=== PATIENT | female | born 1965 | race Two or more races ===

== ENCOUNTER 2020-12-08 11:03 | Emergency (ER) | payer MEDICAID, OTHER ==
[~2020-12-08] VITALS: Ht 162.6 cm; Wt 81.6 kg
[2020-12-08 13:16] VITALS: BP 132/85
== END 2020-12-08 13:26 | disposition home or self-care (01) ==
LOC: ER 11:03
DX: A08.4 Viral intestinal infection, unspecified (principal); R51.9 Headache, unspecified; Z20.822 Contact with and (suspected) exposure to COVID-19
CPT/HCPCS: 36415; 87426

== ENCOUNTER 2024-08-03 14:52 | Emergency (ER) | payer MEDICAID ==
[~2024-08-03] VITALS: Ht 160 cm; Wt 84.0 kg
[2024-08-03 15:53] LABS: Urine Bacteria None Seen /hpf (None Seen)
--- NOTE | 2024-08-03 16:03 | ED.PDOC ---
GI ASSESSMENT HPI Comments 59y F who presents to the ED for chief complaint of abdominal pain. Pt has the following ED course: - pt states she has been having diffuse abdominal pain for the past 3 days. -pt states the pain is bloating and pressure like in nature, non-radiating, rating the pain 8/10, constant, with no noted exacerbating or relieving factors - pt has been taking naproxen 650 mg daily for the pain but it has not been helping - pt has associated urinary frequency but otherwise denies nausea, vomiting or any associated symptoms - pt states she did have bowel movement earlier today - pt otherwise denies any other symptoms past medical history: HTN past surgical history: denies medications: denies allergies: denies social history: endorses tobacco use, endorses Etoh use, denies drug use HARMEET: ANDREA: Poor Historian. REVIEW OF SYSTEMS: CONSTITUTIONAL: Denies acute: fever, diaphoresis, chills, generalized weakness. HEAD: Denies acute: headache, photophobia Eyes: Denies acute: Double vision, vision loss, eye pain, eye discharge. EARS: Denies acute: tinnitus, hearing loss, ear discharge, ear pain, THROAT: Denies acute: sore throat, swelling, difficulty swallowing , pain with swallowing, change in voice. NECK: Denies acute: neck pain, neck swelling, stiff neck. HEART: Denies acute : chest pain, palpitations, LUNGS: Denies acute: SOB, wheezing, cough, hemoptysis ABDOMEN: Denies acute: Nausea, Vomiting, diarrhea, melena , hematemesis, hematochezia SKIN: Denies acute: rash, redness, lesions, itchiness. EXTREMITIES: Denies acute: calf pain, numbness, tingling, weakness, denies pain in extremity. Denies acute: Low back pain. Neuro: Denies acute: focal neurological deficit, motor or sensory focal neurological deficit, tremors, seizure like activity, confusion, dizziness, change in mental status, loss of bowel or bladder function, cauda equina like symptoms. : Denies acute: dysuria, hematuria, flank pain, increase in urinary frequency. PSYCH: Denies acute: hallucination, suicidal ideation, homicidal ideation. FEMALE: Denies acute: abnormal vaginal bleeding, foul odor, unusual discharge. PHYSICAL EXAM: General: no acute distress, awake and alert. Head: normocephalic, atraumatic. Neck: supple, trachea is midline, no swelling. Throat: Normal phonation. Eyes:, no erythema, no purulent discharge, no proptosis, no icterus. Heart: regular rate, regular rhythm, no significant murmur appreciated. Lungs: no apparent respiratory distress, Able to speak in full sentences. No wheezing, no rhonchi, no crackles. No stridors Clear to auscultation bilaterally. Abdomen: Minimal nonspecific generalized tender to palpation, non distended, soft, no guarding, no rebound, + bowel sounds. Neuro: Awake, Alert, oriented to name, self, situation, follows commands GCS=15. Speech is normal. Skin: no petechia, no purpura, no cyanosis, non-pale, not jaundice. Lower extremities: --no - Pitting edema no deformity, no focal swelling, no calf TTP. Makes eye contact. moves all four extremities. Face: no apparent facial droop. Ambulating in the ED independently. ED COURSE: Chief Complaint: Abdominal Pain Time Seen by MD: 16:00 Reviewed Notes: Nurses Notes, Allergies Allergies: Coded Allergies: No Known Drug Allergy (Verified Allergy, Unknown, 12/08/20) Information Source: Patient Mode of Arrival: Ambulatory Brought in by: self Was a procedure done? Was a procedure done?: No GI differential Dx Differential Diagnosis: Other (DDX include Diverticulitis, colitis, gastroenteritis, acute abdomen, SBO, enteritis, constipation, volvulus, radha endicitis, Gallbladder disease, choledocolithiasis, ascending cholangitis, pancreatitis, intraAbdominal mass/neoplasm, hepatitis, UTI, pylonephritis, kidney stone, aneurysm, dissection, Inflammatory bowel disease, gastroparesis, ischemic bowel, ovarian torsion, ovarian cyst/mass, tubo-ovarian abscess PID, STD.) X-Ray, Labs, Meds, VS Vital Signs Date Time Temp Pulse Resp B/P (MAP) Pulse Ox O2 Delivery O2 Flow Rate FiO2 08/03/24 19:49 98.2 63 15 150/73 (98) 97 98.2 08/03/24 19:39 65 16 97 Room Air* 0 21 08/03/24 19:38 98.2 65 15 189/111 (137) 97 98.2 08/03/24 19:27 189/111 08/03/24 18:32 98.2 66 15 161/91 (114) 97 98.2 08/03/24 18:26 67 16 96 Room Air* 0 21 08/03/24 15:41 98.7 71 18 169/79 (109) 97 98.7 Lab Test 08/03/24 16:54 08/03/24 15:38 Range/Units White Blood Count 6.0 4.4-10.8 10^3/uL Red Blood Count 4.26 4.0-5.20 10^6/uL Hemoglobin 14.7 12.2-16.2 g/dL Hematocrit 41.5 36.0-46.0 % Mean Corpuscular Volume 97.3 80.0-100.0 fL Mean Corpuscular Hemoglobin 34.4 H 28.0-32.0 pg Mean Corpuscular Hemoglobin Concent 35.4 32.0-36.0 g/dL Red Cell Distribution Width 12.4 11.8-14.3 % Platelet Count 252 140-450 10^3/uL Mean Platelet Volume 7.9 6.9-10.8 fL Neutrophils (%) (Auto) 53.3 37.0-80.0 % Lymphocytes (%) (Auto) 35.7 10.0-50.0 % Monocytes (%) (Auto) 9.3 0.0-12.0 % Eosinophils (%) (Auto) 1.1 0.0-7.0 % Basophils (%) (Auto) 0.6 0.0-2.0 % Neutrophils # (Auto) 3.2 1.6-8.6 10 ^3/uL Lymphocytes # (Auto) 2.1 0.4-5.4 10 ^3/uL Monocytes # (Auto) 0.6 0-1.3 10 ^3/uL Eosinophils # (Auto) 0.1 0-0.8 10 ^3/uL Basophils # (Auto) 0 0-0.2 10 ^3/uL Nucleated Red Blood Cells 0.0 % Sodium Level 141 136-145 mmol/L Potassium Level 4.1 3.5-5.1 mmol/L Chloride Level 103 98-107 mmol/L Carbon Dioxide Level 30 20-31 mmol/L Anion Gap 8 5-15 Blood Urea Nitrogen 9 9-23 mg/dL Creatinine 0.65 0.550-1.02 mg/dL Glomerular Filtration Rate Calc 101 >90 mL/min BUN/Creatinine Ratio 13.8 10.0-20.0 Serum Glucose 99 74-106 mg/dL Lactic Acid Level 1.1 0.4-2.0 mmol/L Calcium Level 10.1 8.7-10.4 mg/dL Total Bilirubin 0.3 0.2-1.0 mg/dL Aspartate Amino Transferase (AST) 17 13-40 U/L Alanine Aminotransferase (ALT) 24 7-40 U/L Alkaline Phosphatase 117 H 46-116 U/L Troponin I High Sensitivity 4 </=34 ng/L Total Protein 7.4 5.7-8.2 g/dL Albumin 4.9 H 3.2-4.8 g/dL Lipase 37 12-53 U/L Urine Color Colorless Yellow Urine Clarity Clear Clear Urine pH 7.5 5.0-9.0 Urine Specific [place] 1.004 1.001-1.035 Urine Protein Negative Negative Urine Ketones Negative Negative Urine Blood Negative Negative /uL Urine Nitrite Negative Negative Urine Bilirubin Negative Negative Urine Urobilinogen Normal Negative mg/dL Urine Leukocyte Esterase Trace Negative /uL Urine RBC 1 0 - 4 /hpf Urine Microscopic WBC 1 0-5 /HPF Urine Squamous Epithelial Cells Few <5 /hpf Urine Bacteria None seen None Seen /hpf Urine Glucose Normal Normal mg/dL [place] [address] Ph: [phone] DIAGNOSTIC IMAGING Diagnostic Imaging Report : [id number] Signed PATIENT: JACK GA ACCT: [id number] UNIT: [id number] : 1965 LOC: ER ROOM / BED: / AGE / SEX: 59 / F ADM STATUS: REG ER SERVICE 1500 ORDERING PHYSICIAN: HORACE FLOWERS DO PROCEDURE(s): ABPL - CT AB PEL WO CON-NO ORAL OR IV REASON: abd pain ORDER NUMBER(s): [id number], ACCESSION NUMBER(s): [id number] EXAM: CT Abdomen and Pelvis With Intravenous Contrast CLINICAL INDICATION: abd pain TECHNIQUE: Axial computed tomography images of the abdomen and pelvis with intravenous contrast. This CT exam was performed using one or more of the following dose reduction techniques: automated exposure control, adjustment of the mA and/or kV according to patient size, and/or use of iterative reconstruction technique. CONTRAST: RADIATION DOSE: CTDIvol = 20.57 mGy, DLP = 998.4 mGy-cm COMPARISON: None FINDINGS: LUNG BASES: Unremarkable. No mass. No consolidation. MEDIASTINUM: Moderate esophageal hiatal hernia. ABDOMEN: LIVER: Hepatomegaly with fatty infiltration. GALLBLADDER AND BILE DUCTS: Unremarkable. No calcified stones. No ductal dilation. PANCREAS: Unremarkable. No mass. No ductal dilation. SPLEEN: Unremarkable. No splenomegaly. ADRENALS: Unremarkable. No mass. KIDNEYS AND URETERS: Unremarkable. No solid mass. No hydronephrosis. STOMACH AND BOWEL: Colonic diverticulosis without acute diverticulitis. No obstruction. PELVIS: APPENDIX: No findings to suggest acute appendicitis. BLADDER: Unremarkable. No mass. REPRODUCTIVE: Unremarkable as visualized. ABDOMEN and PELVIS: INTRAPERITONEAL SPACE: Unremarkable. No free air. No significant fluid collection. BONES/JOINTS: No acute fracture. No dislocation. SOFT TISSUES: Umbilical hernia containing fat. VASCULATURE: Unremarkable. No abdominal aortic aneurysm. LYMPH NODES: Unremarkable. No enlarged lymph nodes. OTHER FINDINGS: . . IMPRESSION: 1. Moderate esophageal hiatal hernia. 2. Hepatomegaly with fatty infiltration. 3. Umbilical hernia containing fat. 4. Colonic diverticulosis without acute diverticulitis. ATED BY: BENNIE ZIEGLER MD DICTATED DATE/TIME: 08/03/241657 SIGNED BY: BENNIE ZIEGLER MD SIGNED DATE/TIME: 08/03/241657 CC: Time of 1ST Reevaluation: 00:00 Reevaluation 1ST: Improved Patient Education/Counseling: Diagnosis, Treatment Family Education/Counseling: No Family Present Comments Patient presented with the above HPI.------workup was initiated. patient was found with the above mentioned diagnosis. the following medications were ordered: please refer to order lists of meds and tests obtained by myself Dr. Flowers. Patient ED course and VS have been stabilized. Patient has been reassessed in the ED and remained in a stable condition. Pertinent incidental findings were discussed with the patient and/or family. Patient/family voices understanding and is agreeable with plan. Patient has been observed in the ED adequate length of time to insure improvement/stability. Escalation of care considered: Consideration of escalation to observation or admission Patient was hypertensive, she was given sublingual nitroglycerin for blood pressure control. Patient was DISCHARGED home in a stable condition. All the reports of any imaging studies that were ordered by myself were reviewed by myself. Departure 1 Departure Time of Disposition: 18:37 Impression: Primary Impression: Abdominal pain Additional Impressions: Hepatomegaly Hiatal hernia Abnormal finding on CT scan Hypertension Disposition: HOME / SELF CARE / HOMELESS Condition: Stable Additional Instructions: Additional discharge instructions: You MUST follow-up with your primary care/family doctor in 1 to 2 days. If you are unable to see your primary care/family doctor, please return to our emergency room for re-assessment and re-evaluation in 1 to 2 days. Return to the emergency room here in our facility or to the nearest ER [facility] if your symptoms change or worsen. CONSULTATIONS: you MUST Follow-up for consultation as soon as possible with: --gastroenterology and general surgery in 1-2 days. Please call for appointment. You MUST call the consultants office yourself to make an appointment. You may need to arrange that through your insurance and/or your primary/family doctor. If you are unable to see the behavioral consultant in 1 to 2 days, you must return to our emergency room (or any other ER of your choice) for re-assessment and re- evaluation. Adequate fluid hydration. Avoid fatty greasy spicy food. Avoid caffeinated products. Avoid NSAIDs. Below is a copy of your radiological report for follow up: [place] [address] Ph: [phone] DIAGNOSTIC IMAGING Diagnostic Imaging Report : [id number] Signed PATIENT: JACK GA ACCT: [id number] UNIT: [id number] : 1965 LOC: ER ROOM / BED: / AGE / SEX: 59 / F ADM STATUS: REG ER SERVICE 1500 ORDERING PHYSICIAN: HORACE FLOWERS DO PROCEDURE(s): ABPL - CT AB PEL WO CON-NO ORAL OR IV REASON: abd pain ORDER NUMBER(s): [id number], ACCESSION NUMBER(s): [id number] EXAM: CT Abdomen and Pelvis With Intravenous Contrast CLINICAL INDICATION: abd pain TECHNIQUE: Axial computed tomography images of the abdomen and pelvis with intravenous contrast. This CT exam was performed using one or more of the following dose reduction techniques: automated exposure control, adjustment of the mA and/or kV according to patient size, and/or use of iterative reconstruction technique. CONTRAST: RADIATION DOSE: CTDIvol = 20.57 mGy, DLP = 998.4 mGy-cm COMPARISON: None FINDINGS: LUNG BASES: Unremarkable. No mass. No consolidation. MEDIASTINUM: Moderate esophageal hiatal hernia. ABDOMEN: LIVER: Hepatomegaly with fatty infiltration. GALLBLADDER AND BILE DUCTS: Unremarkable. No calcified stones. No ductal dilation. PANCREAS: Unremarkable. No mass. No ductal dilation. SPLEEN: Unremarkable. No splenomegaly. ADRENALS: Unremarkable. No mass. KIDNEYS AND URETERS: Unremarkable. No solid mass. No hydronephrosis. STOMACH AND BOWEL: Colonic diverticulosis without acute diverticulitis. No obstruction. PELVIS: APPENDIX: No findings to suggest acute appendicitis. BLADDER: Unremarkable. No mass. REPRODUCTIVE: Unremarkable as visualized. ABDOMEN and PELVIS: INTRAPERITONEAL SPACE: Unremarkable. No free air. No significant fluid collection. BONES/JOINTS: No acute fracture. No dislocation. SOFT TISSUES: Umbilical hernia containing fat. VASCULATURE: Unremarkable. No abdominal aortic aneurysm. LYMPH NODES: Unremarkable. No enlarged lymph nodes. OTHER FINDINGS: . . IMPRESSION: 1. Moderate esophageal hiatal hernia. 2. Hepatomegaly with fatty infiltration. 3. Umbilical hernia containing fat. 4. Colonic diverticulosis without acute diverticulitis. ATED BY: BENNIE ZIEGLER MD DICTATED DATE/TIME: 08/03/241657 SIGNED BY: BENNIE ZIEGLER MD SIGNED DATE/TIME: 08/03/241657 CC: Discharged With: Self Critical Care Note Critical Care Time?: No I personally scribed for HORACE FLOWERS DO ([email or web address]) on 08/03/24 at 16:03. Electronically submitted by Kayleigh Lai (YOLANDA). I personally scribed for HORACE FLOWERS DO ([email or web address]) on 08/03/24 at 16:19. Electronically submitted by Kayleigh Lai (YOLANDA). I personally scribed for HORACE FLOWERS DO ([facility]) on 08/03/24 at 17:33. Electronically submitted by Kayleigh Lai ([facility]). I personally scribed for HORACE FLOWERS DO ([facility]) on 08/03/24 at 20:43. Electronically submitted by Kayleigh Lai ([facility]). I personally scribed for HORACE FLOWERS DO ([facility]) on 08/03/24 at 20:44. Electronically submitted by Kayleigh Lai ([facility]). HORACE FLOWERS DO Aug 03, 2024 16:03
[2024-08-03 16:09] LABS: Urine Blood Negative /uL (Negative); Urine Clarity Clear (Clear); Urine Color Colorless (Yellow); Urine Protein, UAD Negative (Negative); Urine Specific Gravity 1.004 (1.001-1.035); Urine Squamous Epithelial Cell FEW /hpf (<5); Urine Urobilinogen Normal (Negative); Urine WBC 1 /HPF (0-5); Urine pH 7.5 (5.0-9.0)
--- NOTE | 2024-08-03 17:00 | DVH ---
EXAM: CT Abdomen and Pelvis With Intravenous Contrast CLINICAL INDICATION: abd pain TECHNIQUE: Axial computed tomography images of the abdomen and pelvis with intravenous contrast. Th is CT exam was performed using one or more of the following dose reduction techniques: automated exp osure control, adjustment of the mA and/or kV according to patient size, and/or use of iterative peg nstruction technique. CONTRAST: RADIATION DOSE: CTDIvol = 20.57 mGy, DLP = 998.4 mGy-cm COMPARISON: None FINDINGS: LUNG BASES: Unremarkable. No mass. No consolidation. MEDIASTINUM: Moderate esophageal hiatal hernia. ABDOMEN: LIVER: Hepatomegaly with fatty infiltration. GALLBLADDER AND BILE DUCTS: Unremarkable. No calcified stones. No ductal dilation. PANCREAS: Unremarkable. No mass. No ductal dilation. SPLEEN: Unremarkable. No splenomegaly. ADRENALS: Unremarkable. No mass. KIDNEYS AND URETERS: Unremarkable. No solid mass. No hydronephrosis. STOMACH AND BOWEL: Colonic diverticulosis without acute diverticulitis. No obstruction. PELVIS: APPENDIX: No findings to suggest acute appendicitis. BLADDER: Unremarkable. No mass. REPRODUCTIVE: Unremarkable as visualized. ABDOMEN and PELVIS: INTRAPERITONEAL SPACE: Unremarkable. No free air. No significant fluid collection. BONES/JOINTS: No acute fracture. No dislocation. SOFT TISSUES: Umbilical hernia containing fat. VASCULATURE: Unremarkable. No abdominal aortic aneurysm. LYMPH NODES: Unremarkable. No enlarged lymph nodes. OTHER FINDINGS: . . IMPRESSION: 1. Moderate esophageal hiatal hernia. 2. Hepatomegaly with fatty infiltration. 3. Umbilical hernia containing fat. 4. Colonic diverticulosis without acute diverticulitis.
[2024-08-03 17:16] LABS: Basophils # (auto) 0 10 ^3/uL (0-0.2); Basophils % (auto) 0.6 % (0.0-2.0); Eosinophils # (auto) 0.1 10 ^3/uL (0-0.8); Eosinophils % (auto) 1.1 % (0.0-7.0); Hematocrit 41.5 % (36.0-46.0); Hemoglobin 14.7 g/dL (12.2-16.2); Lymphocytes # (auto) 2.1 10 ^3/uL (0.4-5.4); Lymphocytes % (auto) 35.7 % (10.0-50.0); Mean Corpuscular Hemoglobin 34.4 pg (28.0-32.0); Mean Corpuscular Hgb Conc. 35.4 g/dL (32.0-36.0); Mean Corpuscular Volume 97.3 fL (80.0-100.0); Monocytes # (auto) 0.6 10 ^3/uL (0-1.3); Monocytes % (auto) 9.3 % (0.0-12.0); Neutrophils # (auto) 3.2 10 ^3/uL (1.6-8.6); Neutrophils % (auto) 53.3 % (37.0-80.0); Platelet Count (auto) 252 10^3/uL (140-450); Red Blood Cells 4.26 10^6/uL (4.0-5.20); Red Cell Distribution Width 12.4 % (11.8-14.3)
[2024-08-03 17:38] LABS: Alanine Aminotransferase 24 U/L (7-40); Anion Gap 8 (5-15); Aspartate Aminotransferase 17 U/L (13-40); BUN/Creatinine Ratio 13.8 (10.0-20.0); Calcium 10.1 mg/dL (8.7-10.4); Carbon Dioxide 30 mmol/L (20-31); Chloride 103 mmol/L (98-107); Glucose 99 mg/dL (74-106); Potassium 4.1 mmol/L (3.5-5.1); Sodium 141 mmol/L (136-145); Total Protein 7.4 g/dL (5.7-8.2)
[2024-08-03 17:43] LABS: Albumin 4.9 g/dL (3.2-4.8); Alkaline Phosphatase 117 U/L (46-116); Bilirubin, Total 0.3 mg/dL (0.2-1.0); Blood Urea Nitrogen 9 mg/dL (9-23)
[2024-08-03 17:53] LABS: Lipase 37 U/L (12-53)
[2024-08-03 18:26] VITALS: PULSE 67; RESP 16; O2SAT 96
[2024-08-03] MEDS: PANTOPRAZOLE 40 MG/10 ML VIAL INJ IV ONE (19:22)
[2024-08-03] MEDS: HYDROcodone-ACET 5/325MG TAB PO ONE (19:22)
[2024-08-03] MEDS: LIDOCAINE VISCOUS 2% 15ML UD PO ONE (19:22)
[2024-08-03] MEDS: NITROGLYCERIN 0.4 MG SL TAB SL ONE (19:27)
[2024-08-03] MEDS: PANTOPRAZOLE 40 MG TAB PO ONE (19:35)
[2024-08-03 19:39] VITALS: PULSE 65; RESP 16; O2SAT 97
[2024-08-03 19:49] VITALS: BP 150/73; PULSE 63; RESP 15; TEMP 98.2; O2SAT 97
== END 2024-08-03 19:50 | disposition home or self-care (01) ==
LOC: ER 14:52
DX: R16.0 Hepatomegaly, not elsewhere classified (principal); K44.9 Diaphragmatic hernia without obstruction or gangrene; R10.84 Generalized abdominal pain; I10 Essential (primary) hypertension
CPT/HCPCS: 36415; 74176; 80053; 81001; 83605; 83690; 84484; 85025; J2470

== ENCOUNTER 2025-01-24 05:19 | Emergency (ER) | payer MEDICAID ==
[~2025-01-24] VITALS: Ht 160 cm; Wt 81.8 kg
[2025-01-24 05:19] VITALS: BP 134/72; PULSE 73; RESP 18; TEMP 98.4; O2SAT 96
--- NOTE | 2025-01-24 06:40 | ED.PDOC ---
Musculoskeletal HPI Comments A 59 YEAR OLD FEMALE PRESENTS TO THE ED WITH COMPLAINT OF 2ND OPINION OF AN X- RAY. PATIENT HAD A MECHANICAL FALL WEDNESDAY AND HAD LEFT ANKLE AND FOOT PAIN. PATIENT WENT TO [facility] WHERE THEY INFORMED THE PATIENT THAT THE ARE NOT ABLE TO RULE OUT A FRACTURE DUE FROM THE X-RAY NOT BEING RESULTED FOR 1-2 DAYS. PATIENT CAME IN TODAY FOR A 2ND X-RAY/OPINION. PATIENT DENIES FEVER, CHILLS, SHORTNESS OF BREATH, CHEST PAIN, ABDOMINAL PAIN, NAUSEA, VOMITING, HEADACHE, OR OTHER COMPLAINTS. NO OTHER SYMPTOMS OR MODIFYING FACTORS AT THIS TIME. PATIENT IS ALERT, ORIENTED X 4, AND HAS STEADY GAIT. Chief Complaint: Lower Extremity Time Seen by MD: 06:30 Reviewed Notes: Nurses Notes, Medications, Allergies Allergies: Coded Allergies: No Known Drug Allergy (Verified Allergy, Unknown, 12/08/20) Information Source: Patient Mode of Arrival: Ambulatory Location: Left Extremity Location: Ankle, Foot Timing: Days Prehospital treatment: None Severity: Moderate Able to Move Extremity: Yes Bear Weight: Limited Pain: Moderate Hand Dominance: Right Mechanism: Spontaneous, Other Circumstances: Fall Onset of Symptoms: During Exercise Symptoms: Pain DVT Risk Factors: NONE Last Tetanus: UTD Associated signs and symptoms: Ankle pain, Foot pain Past Medical History PAST MEDICAL HISTORY: Denies Surgical History: Denies all surgeries MATERIAL DISTRIBUTOR History: No Pertinent MATERIAL DISTRIBUTOR History Family History Family History: Reviewed,noncontributory to illness, Unknown Social History Smoker: Non-Smoker Alcohol: Denies ETOH Use Drugs: Denies Drug Use Constitutional: denies: chills, diaphoresis, fatigue, fever, malaise, sweats, weakness, others EENTM: denies: blurred vision, double vision, ear bleeding, ear discharge, ear drainage, ear pain, ear ringing, eye pain, eye redness, hearing loss, mouth pain, mouth swelling, nasal discharge, nose bleeding, nose congestion, nose pain, photophobia, tearing, throat pain, throat swelling, voice changes, others Respiratory: denies: cough, hemoptysis, orthopnea, SOB at rest, shortness of breath, SOB with excertion, stridor, wheezing, others Cardiovascular: denies: chest pain, dizzy spells, diaphoresis, Dyspnea on exertion, edema, irregular heart beat, left arm pain, lightheadedness, palpitations, PND, syncope, others Gastrointestinal: denies: abdomen distended, abdominal pain, blood streaked bowels, constipated, diarrhea, dysphagia, difficulty swallowing, hematemesis, melena, nausea, poor appetite, poor fluid intake, rectal bleeding, rectal pain, vomiting, others Genitourinary: denies: abnormal vagina bleeding, burning, dyspareunia, dysuria, flank pain, frequency, hematuria, incontinence, pain, , vagina discharge, urgency, others Neurological: denies: dizziness, fainting, headache, left sided numbness, left sided weakness, numbness, paresthesia, pre-existing deficit, right sided numbness, right sided weakness, seizure, speech problems, tingling, tremors, weakness, others Musculoskeletal: reports: joint pain, joint swelling; denies: back pain, gout, muscle pain, muscle stiffness, neck pain, others Integumetry: denies: bruises, change in color, change in hair/nails, dryness, laceration, lesions, lumps, rash, wounds, others Allergic/Immunocompromised: denies: Difficulty Healing, Frequent Infections, Hives, Itching, others Hematologic/Lymphatic: denies: anemia, blood clots, easy bleeding, easy bruising, swollen glands, others Endocrine: denies: excessive hunger, excessive sweating, excessive thirst, excessive urination, flushing, intolerance to cold, intolerance to heat, unexplained weight gain, unexplained weight loss, others Psychiatric: denies: anxiety, bipolar disorder, depression, hopeless, panic disorder, schizophrenia, sleepless, suicidal, others All Other Systems: Reviewed and Negative Physical Exam General Appearance: No Apparent Distress, Normal HEENT: Normal ENT Inspection, PERRL/EOMI, Pharynx Normal, TMs Normal Neck: Full Range of Motion, Non-Tender, Normal, Normal Inspection Respiratory: Chest Non-Tender, Lungs Clear, No Accessory Muscle Use, No Respiratory Distress, Normal Breath Sounds Cardiovascular: No Edema, No JVD, No Murmur, No Gallop, Normal Peripheral Pulses, Regular Rate/Rhythm Breast Exam: Deferred Gastrointestinal: No Organomegaly, Non Tender, No Pulsatile Mass, Normal Bowel Sounds, Soft Genitalia: Deferred Pelvic: Deferred Rectal: Deferred Extremities: Decreased range of motion, No calf tenderness, Normal capillary refill, No pedal edema, Swelling (TENDERNESS AND MILD SWELLING ON LEFT ANKLE, NO BONY TENDERNESS AND DEFORMITY. ), Tender (ON LEFT DORSAL FOOT, NO BONY TENDERNESS AND DEFORMITY. A SPLINT ON LEFT LOWER LEG. ) Musculoskeletal : Apperance: Normal Neurologic: Alert, museum curator II-XII nml as Tested, No Motor Deficits, Normal Affect, Normal Mood, No Sensory Deficits Cerebellar Function: Normal Reflexes: Normal Skin: Dry, Normal Color, Warm Peripheral Pulses: 2+ carotid (R), 2+ carotid (L), 2+ dorsalis pedis (R), 2+ dorsalis pedis (L) Lymphatic: No Adenopathy Was a procedure done? Was a procedure done?: No Differential Diagnosis EXT Differential Diagnosis: Fracture, Sprain, Contusion, Strain, Bursitis X-Ray, Labs, Meds, VS Vital Signs Date Time Temp Pulse Resp B/P (MAP) Pulse Ox O2 Delivery O2 Flow Rate FiO2 01/24/25 05:19 98.4 73 18 134/72 96 98.4 PATIENT: JACK GA EACCT: [id number]: [id number] : 1965 LOC: ER ROOM / BED: / AGE / SEX: 59 / F ADM STATUS: REG ER SERVICE ORDERING PHYSICIAN: ANJELICA DISLA PROCEDURE(s): LANKL - L ANKLE 3 VIEW REASON: left ankle pain ORDER NUMBER(s): [id number], ACCESSION NUMBER(s): [id number] PROCEDURE: Left ankle radiographs. INDICATION: Left ankle pain. TECHNIQUE: 3 views of the left ankle were obtained. COMPARISON: None FINDINGS: A cast is present. There is no evidence of fracture or dislocation. Joint spaces are maintained. The soft tissues are unremarkable. IMPRESSION: 1. No fracture or dislocation. ATED BY: JOSE HENNESSY MD DICTATED DATE/TIME: 01/24/25639 SIGNED BY: JOSE HENNESSY MD SIGNED DATE/TIME: 01/24/25639 CC: X-Ray, Labs, Meds, VS Comment EXTERNAL MEDICAL RECORDS REVIEWED: [NONE] INDEPENDENT HISTORIANS: [NONE] SOCIAL DETERMINANTS OF HEALTH: [NONE] LABS ORDERED: NONE REVIEWED AND INTERPRETED RESULTS: NONE IMAGING ORDERED: X-RAY TO THE LEFT FOOT/ANKLE: NORMAL, NO ACUTE FINDING. TREATMENTS ORDERED: TYLENOL 1GM PROCEDURES PERFORMED: NONE CRITICAL CARE TIME: NONE I HAVE DISCUSSED THE PATIENT WITH THE ATTENDING PHYSICIAN DR. NOEL AND HE AGREES WITH THE PATIENT'S PLAN OF CARE AND DISPOSITION. BASED ON HISTORY OF PRESENT ILLNESS, AND PHYSICAL EXAM, PATIENT WILL BE DISCHARGED HOME. DISCUSSED PLAN FOR DISCHARGE HOME WITH RX [MOTRIN 800MG]. MEDICATION WARNINGS GIVEN. SHARED DECISION MAKING: DISCUSSED WITH PATIENT THAT THEIR WORKUP WAS NORMAL. PATIENT INSTRUCTED TO FOLLOW UP WITH PRIMARY CARE PROVIDER IN 1-2 DAYS FOR RE- EVALUATION OF SYMPTOMS. PATIENT VERBALIZES UNDERSTANDING TO RETURN TO ED FOR NEW OR WORSENING SYMPTOMS OR IF FOLLOW UP WITH PCP CANNOT BE OBTAINED. PATIENT FEELS COMFORTABLE GOING HOME AT THIS TIME. ALL QUESTIONS ADDRESSED AT TIME OF DISCHARGE. Time of 1ST Reevaluation: 07:35 Reevaluation 1ST: Unchanged Patient Education/Counseling: Diagnosis, Treatment, Need For Follow Up Family Education/Counseling: Diagnosis, Treatment, Need For Follow Up Medical Screening: No EMC Exist At This Time Departure 1 Departure Time of Disposition: 07:40 Impression: Primary Impression: Sprain of left ankle Qualified Codes: S93.402D - Sprain of unspecified ligament of left ankle, subsequent encounter Disposition: 01 HOME / SELF CARE / HOMELESS Condition: Stable Additional Instructions: F/U PCP IN 2 DAYS RECHECK. IF CONDITION BECOME WORSE, RETURN TO ED [facility]. e-Prescriptions Ibuprofen (Ibuprofen) 800 Mg Tab 1 TAB PO TID, #30 TAB Prov: FRANCES URRUTIA 01/24/25 Discharged With: Self, Relative Critical Care Note Critical Care Time?: No Stability Stability form required: No I personally scribed for FRANCES URRUTIA ([email or web address]) on 01/24/25 at 06:40. Electronically submitted by Denny Rhodes ([email or web address]). FRANCES URRUTIA Jan 24, 2025 06:40
[2025-01-24] MEDS ORDERED: IBUP-1456 PO (07:34)
[2025-01-24] MEDS: ACETAMINOPHEN 500 MG TAB or CAP PO ONE (07:35)
--- NOTE | 2025-01-24 07:55 | DVH ---
EXAM: XY L FOOT 3 VIEW XRAY HISTORY: FALL COMPARISON: None TECHNIQUE: Three views of the left foot were performed. FINDINGS: No acute fracture or dislocation are identified about the left foot. There is mild osteoarthritis of the 1st MTP joint. 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 Plantar calcaneal bone spur, Achilles insertion enthesophyte, os peroneum, and accessory navicul ar bone are incidentally noted. Fiberglass cast material overlies the films, obscuring evaluation of fine detail. IMPRESSION: 1. No acute fracture of the left foot. 2. Nonacute findings as detailed above.
== END 2025-01-24 07:36 | disposition home or self-care (01) ==
LOC: ER 05:19
DX: S93.402A Sprain of unspecified ligament of left ankle, initial encounter (principal); W19.XXXA Unspecified fall, initial encounter; Y93.89 Activity, other specified; Y92.89 Other specified places as the place of occurrence of the external cause; Y99.8 Other external cause status
CPT/HCPCS: 73610; 73630

== ENCOUNTER 2025-03-08 17:52 | Inpatient (IN) | payer MEDICAID ==
[~2025-03-08] VITALS: Ht 160 cm; Wt 83.6 kg
[~2025-03-08 17:52] MED LIST: IBUP-1456 PO
[2025-03-08 18:17] LABS: Hematocrit 39.8 % (36.0-46.0); Hemoglobin 13.8 g/dL (12.2-16.2); Mean Corpuscular Hemoglobin 33.4 pg (28.0-32.0); Mean Corpuscular Volume 96.3 fL (80.0-100.0); Nucleated Red Blood Cells % 0.0 %
[2025-03-08 18:31] LABS: Alanine Aminotransferase 23 U/L (7-40); Albumin 4.6 g/dL (3.2-4.8); Alkaline Phosphatase 101 U/L (46-116); Anion Gap 7 (5-15); BUN/Creatinine Ratio 16.9 (10.0-20.0); Bilirubin, Total 0.3 mg/dL (0.2-1.0); Blood Urea Nitrogen 14 mg/dL (9-23); Calcium 9.4 mg/dL (8.7-10.4); Carbon Dioxide 27 mmol/L (20-31); Chloride 104 mmol/L (98-107); Potassium 3.9 mmol/L (3.5-5.1); Sodium 138 mmol/L (136-145); Total Protein 7.8 g/dL (5.7-8.2)
[2025-03-08 18:32] LABS: Glucose 113 mg/dL (74-106)
--- NOTE | 2025-03-08 18:53 | ECG ---
[facility] Test Date: 2025-03-08 Test Time: 17:57:06 Pat Name: JACK GA Department: Room: 0297T Gender: F Finishing Operator: FABIAN : 1965 Requested By: HORACE FLOWERS Order Number: [id number] Reading MD: Harley Lzooya Measurements Intervals [place] Rate: 95 P: 60 [place]: 140 QRS: 45 QRSD: 88 T: 37 QT: 372 QTc: 468 Interpretive Statements Sinus rhythm Probable left atrial enlargement Abnormal R-wave progression, early transition Electronically Signed On 03-13-2025 13:28:22 PST by Harley Lozoya Please click the below link to view image of tracing.
--- NOTE | 2025-03-08 18:54 | ECG ---
[facility] Test Date: 2025-03-08 Test Time: 18:52:15 Pat Name: JACK GA Department: Room: 0297T Gender: F Secretarial Stenographer: ADOLFO : 1965 Requested By: HORACE FLOWERS Order Number: [id number] Reading MD: Harley Lozoya Measurements Intervals [place] Rate: 82 P: 65 [place]: 145 QRS: 53 QRSD: 102 T: 41 QT: 396 QTc: 463 Interpretive Statements Sinus rhythm Probable left atrial enlargement Electronically Signed On 03-13-2025 13:28:26 PST by Harley Lozoya Please click the below link to view image of tracing.
--- NOTE | 2025-03-08 18:55 | DVH ---
CHEST RADIOGRAPH Indication: LONG TERM ACUTE CARE REGISTERED NURSE Technique: Single frontal view of the chest was obtained Comparison: None FINDINGS: Lines and Tubes: None Lungs: No focal consolidation. Pleura: No effusion. No pneumothorax. Cardiomediastinal contours: Unremarkable Bones: No acute osseous abnormality. IMPRESSION: 1. No acute cardiopulmonary disease.
[2025-03-08] MEDS: NITROGLYCERIN 0.4 MG SL TAB SL ONE (20:58)
[2025-03-08] MEDS: LIDOCAINE VISCOUS 2% 15ML UD PO ONE (20:58)
[2025-03-08] MEDS: SUCRALFATE 1 GM TAB PO ONE (20:58)
[2025-03-08] MEDS: PANTOPRAZOLE 40 MG TAB PO ONE (20:59)
[2025-03-08] MEDS: ASPirin-EC 325mg tab PO ONE (21:00)
[2025-03-08] MEDS ORDERED: ONDANSETRON HCL 4 MG/2 ML VIAL IV PRN (21:15)
[2025-03-08] MEDS ORDERED: DOCUSATE SOD 100 MG CAP PO PRN (21:15)
[2025-03-08] MEDS: SODIUM CHLOR 0.9% PF (SALINE LOCK) 10ML VIAL/SYR IV SCH (22:18)
[2025-03-08 22:25] VITALS: PULSE 71; RESP 18; O2SAT 99
[2025-03-09] VITALS (13 sets, daily range): BP systolic 113–170; BP diastolic 63–94; PULSE 61–111; RESP 16–18; TEMP 97.7–98.6; O2SAT 95–99
[2025-03-09] MEDS ORDERED: MORPHINE SULFATE INJ 2 MG/ml SYRG IV PRN
[2025-03-09] MEDS: NITROGLYCERIN 0.4 MG SL TAB SL PRN (04:08)
[2025-03-09 05:48] LABS: Hematocrit 39.0 % (36.0-46.0); Hemoglobin 13.6 g/dL (12.2-16.2); Mean Corpuscular Hemoglobin 33.7 pg (28.0-32.0); Mean Corpuscular Volume 96.5 fL (80.0-100.0); Nucleated Red Blood Cells % 0.0 %
[2025-03-09] MEDS ORDERED: LOSA-535 PO (05:48)
[2025-03-09] MEDS ORDERED: AMLO1TAB22 PO (05:48)
[2025-03-09] MEDS ORDERED: HYDR25TA4 PO (05:48)
[2025-03-09 06:06] LABS: Alkaline Phosphatase 77 U/L (46-116)
[2025-03-09 06:07] LABS: Alanine Aminotransferase 23 U/L (7-40); Albumin 4.4 g/dL (3.2-4.8); Anion Gap 10 (5-15); BUN/Creatinine Ratio 18.2 (10.0-20.0); Bilirubin, Total 0.6 mg/dL (0.2-1.0); Blood Urea Nitrogen 10 mg/dL (9-23); Calcium 9.6 mg/dL (8.7-10.4); Carbon Dioxide 23 mmol/L (20-31); Sodium 141 mmol/L (136-145); Total Protein 7.3 g/dL (5.7-8.2)
[2025-03-09 06:21] LABS: Chloride 108 mmol/L (98-107); Glucose 111 mg/dL (74-106); Potassium 3.4 mmol/L (3.5-5.1)
--- NOTE | 2025-03-09 08:38 | ECG ---
[facility] Test Date: 2025-03-09 Test Time: 03:35:08 Pat Name: JACK GA Department: Respiratoy Room: 0297T A Gender: F Central Control Room Operator: : 1965 Requested By: HORACE FLOWERS Order Number: [id number] Reading MD: Harley Lozoya Measurements Intervals [place] Rate: 66 P: 55 DC: 171 QRS: 34 QRSD: 125 T: 12 QT: 408 QTc: 428 Interpretive Statements Sinus rhythm Nonspecific intraventricular conduction delay Electronically Signed On 03-13-2025 12:54:57 PST by Harley Lozoya Please click the below link to view image of tracing.
[2025-03-09] MEDS: PANTOPRAZOLE 40 MG/10 ML VIAL INJ IV SCH (09:19)
[2025-03-09 10:13] LABS: Urine Budding Yeast OCCASIONAL /hpf (None Seen); Urine Protein, UAD TRACE (Negative)
--- NOTE | 2025-03-09 11:25 | ED.PDOC ---
History of Present Illness HPI Comments Ms. Hansen is a 59-year-old female with prior medical history of hypertension, questionable hiatal hernia, GERD, and diverticulosis, who presents today with chief complaint of chest pain. She states since Wednesday she has had retrosternal chest pain which has progressively worsened in the last 2 days. This pain is described as constant pressure-like, nonradiating, 9/10 intensity, associated with nausea, palpitations, shortness of breath, and epigastric pain described as burning, nonradiating, 7/10 intensity, which improves with belching. She denies diaphoresis, vomiting, fever, chills, lightheadedness, radiation of pain, and peripheral edema. Additionally refers that since Wednesday she has had elevated blood pressure despite compliance with her medications, she states she reached out to her PCP (Dr. Rizvi) gave her an appointment for Wednesday but said if her diastolic blood pressure were to be over 100 then she should present to the ED, the patient states that today her diastolic blood pressure was 109 mmHg, for which she decided to come for evaluation in the emergency department. On initial evaluation, the patient seemed well, slightly hypertensive with BP of 164/81 mmHg, with other vitals within normal range, without overt signs of distress. Home medications: Losartan 100 mg p.o. daily, hydrochlorothiazide 25 mg p.o. daily, amlodipine 5 mg p.o. daily Attestation note: Dr. Flowers: I was the supervising attending for this ED encounter. Please see the resident's notes. I was available for questions and consultations. Differential diagnosis: Ddx include but not limitied to gastritis, musculoskeletal pain, radiculopathy, atypical chest pain, dissection, aneurysm, ACS, unstable angina, hiatal hernia, GERD, anxiety, costochondritis, PE, pneumothroax, neoplasm, cardiac ischemia, drug abuse, anemia. MDM: MDM: patient presented with the above HPI.-----chest pain-workup was initiated. patient was found with the above mentioned diagnosis. the following medications were ordered: please refer to order lists of meds and tests obtained by myself Dr. Flowers. Patient ED course and VS have been stabilized. Patient has been reassessed in the ED and remained in a stable condition. Pertinent incidental findings were discussed with the patient and/or family. Patient/family voices understanding and is agreeable with plan. Patient has been observed in the ED adequate length of time to insure improvement/stability. Escalation of care considered: Consideration of escalation to observation or admission Urinalysis results were not available at the time of disposition. Patient was ADMITTED to the medicine team for further evaluation and treatment of their presentation. All the reports of any imaging studies that were ordered by myself were reviewed by myself. Chief Complaint: Chest Pain Time Seen by MD: 19:45 Primary Care Provider: Dr. Rizvi Allergies: Coded Allergies: No Known Drug Allergy (Verified Allergy, Unknown, 12/08/20) Home Meds Active Scripts Ibuprofen (Ibuprofen) 800 Mg Tab, 1 TAB PO TID, #30 TAB Prov:FRANCES URRUTIA 01/24/25 Reported Medications Amlodipine Besylate (Amlodipine Besylate) 5 Mg Tab, 5 MG PO DAILY for 30 Days, MG 03/09/25 Hydrochlorothiazide (Hydrochlorothiazide) 25 Mg Tab, 25 MG PO DAILY for 30 Days, MG 03/09/25 Losartan Potassium (Losartan Potassium) 100 Mg Tab, 100 MG PO DAILY for 30 Days, MG 03/09/25 Information Source: Patient Mode of Arrival: Ambulatory Severity: Mild Timing: Days Duration: Since onset Past Medical History PAST MEDICAL HISTORY: GERD, HTN Past Medical History (Other): Divterticulosis, DCIS of left breast, questionable hiatal hernia Surgical History: Tubal Ligation Surgical History (Other): 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 (DCIS of left breast) Family History Family History: Reviewed,noncontributory to illness Social History Smoker: Less Than 1 Pack/Day (Smokes 5-6 cigarettes a day for over 20 years) Alcohol: Occasionally Drugs: Denies Drug Use Lives In: Home Constitutional: denies: chills, diaphoresis, fatigue, fever, malaise, sweats, weakness EENTM: denies: blurred vision, double vision, hearing loss, mouth pain, nasal discharge Respiratory: reports: shortness of breath, stridor; denies: cough, hemoptysis, orthopnea Cardiovascular: reports: chest pain, palpitations; denies: dizzy spells, diaphoresis, Dyspnea on exertion, edema, irregular heart beat, left arm pain Gastrointestinal: reports: abdominal pain, nausea, rectal pain; denies: abdomen distended, constipated, diarrhea, hematemesis, melena, poor appetite, poor fluid intake, rectal bleeding, vomiting Genitourinary: denies: burning, dysuria, flank pain, frequency, hematuria, incontinence, pain, urgency Neurological: denies: fainting, headache, numbness, paresthesia, seizure, tingling, tremors Musculoskeletal: reports: gout; denies: back pain, joint pain, joint swelling, muscle pain, muscle stiffness, neck pain Integumetry: denies: bruises, dryness, laceration, lesions, lumps, rash, wounds Physical Exam General Appearance: Normal, Obese HEENT: Normal ENT Inspection, PERRL/EOMI, Pharynx Normal Neck: Full Range of Motion, Non-Tender, Normal Inspection Respiratory: Other (Bilateral chest expansion, pain is reproducible on anterior chest wall palpation, bilateral clear lungs, vesicular murmur auscultated without accessory sounds, no accessory muscle use, no respiratory distress) Cardiovascular: No Edema, No Murmur, Normal Peripheral Pulses, Regular Rate/Rhythm Breast Exam: Deferred Gastrointestinal: Other (Obese, normal bowel sounds, tympanic to percussion, soft, pain on epigastric palpation, without rebound tenderness or guarding) Genitalia: Deferred Pelvic: Deferred Rectal: Deferred Extremities: Normal capillary refill, Normal inspection, Normal range of motion, Non-tender, No pedal edema Neurologic: Alert, Normal Affect, Normal Mood Cerebellar Function: Normal Reflexes: NOT DONE Skin: Normal Color Peripheral Pulses: 3+ dorsalis pedis (R), 3+ dorsalis pedis (L) Lymphatic: Other (No cervical adenopathy) Was a procedure done? Was a procedure done?: No EKG EKG : Pulse Rate (adult): 95 [place]: Normal Cardiac Rhythm: NSR Block: None Hypertrophy: LAE ST: Normal Differential Dx Considerations may include: ACS, OR, GERD, pericarditis, muscle strain, costochondritis, pneumonia, hypertensive urgency, hypertensive emergency X-Ray, Labs, Meds, VS Vital Signs Date Time Temp Pulse Resp B/P (MAP) Pulse Ox O2 Delivery O2 Flow Rate FiO2 03/08/25 23:19 75 03/08/25 22:25 98.8 71 18 157/70 (99) 99 98.8 03/08/25 22:25 71 18 99 Room Air* 0 21 03/08/25 21:11 71 10/30/25 20:58 167/85 03/08/25 18:55 82 03/08/25 17:57 95 03/08/25 17:54 97.9 92 17 164/81 98 97.9 Lab Test 03/08/25 18:54 03/08/25 18:05 Range/Units Troponin I High Sensitivity 3 L 4 </=34 ng/L White Blood Count 7.5 4.4-10.8 10^3/uL Red Blood Count 4.14 4.0-5.20 10^6/uL Hemoglobin 13.8 12.2-16.2 g/dL Hematocrit 39.8 36.0-46.0 % Mean Corpuscular Volume 96.3 80.0-100.0 fL Mean Corpuscular Hemoglobin 33.4 H 28.0-32.0 pg Mean Corpuscular Hemoglobin Concent 34.7 32.0-36.0 g/dL Red Cell Distribution Width 12.4 11.8-14.3 % Platelet Count 253 140-450 10^3/uL Mean Platelet Volume 7.6 6.9-10.8 fL Neutrophils (%) (Auto) 54.7 37.0-80.0 % Lymphocytes (%) (Auto) 35.5 10.0-50.0 % Monocytes (%) (Auto) 8.8 0.0-12.0 % Eosinophils (%) (Auto) 0.5 0.0-7.0 % Basophils (%) (Auto) 0.5 0.0-2.0 % Neutrophils # (Auto) 4.1 1.6-8.6 10 ^3/uL Lymphocytes # (Auto) 2.7 0.4-5.4 10 ^3/uL Monocytes # (Auto) 0.7 0-1.3 10 ^3/uL Eosinophils # (Auto) 0 0-0.8 10 ^3/uL Basophils # (Auto) 0 0-0.2 10 ^3/uL Nucleated Red Blood Cells 0.0 % Sodium Level 138 136-145 mmol/L Potassium Level 3.9 3.5-5.1 mmol/L Chloride Level 104 98-107 mmol/L Carbon Dioxide Level 27 20-31 mmol/L Anion Gap 7 5-15 Blood Urea Nitrogen 14 9-23 mg/dL Creatinine 0.83 0.550-1.02 mg/dL Glomerular Filtration Rate Calc 81 >90 mL/min BUN/Creatinine Ratio 16.9 10.0-20.0 Serum Glucose 113 H 74-106 mg/dL Calcium Level 9.4 8.7-10.4 mg/dL Total Bilirubin 0.3 0.2-1.0 mg/dL Aspartate Amino Transferase (AST) 23 13-40 U/L Alanine Aminotransferase (ALT) 23 7-40 U/L Alkaline Phosphatase 101 46-116 U/L Total Protein 7.8 5.7-8.2 g/dL Albumin 4.6 3.2-4.8 g/dL [facility] [id number] [place] [address] Ph: [phone] DIAGNOSTIC IMAGING Diagnostic Imaging Report : [id number] Signed PATIENT: JACK HANSEN ACCT: [id number] UNIT: [id number] : 1965 LOC: ER ROOM / BED: / AGE / SEX: 59 / F ADM STATUS: REG ER SERVICE 57 ORDERING PHYSICIAN: HORACE FLOWERS DO PROCEDURE(s): CXRP - CHEST PORTABLE REASON: KENNEL HELPER ORDER NUMBER(s): [id number], ACCESSION NUMBER(s): [id number] CHEST RADIOGRAPH Indication: KENNEL HELPER Technique: Single frontal view of the chest was obtained Comparison: None FINDINGS: Lines and Tubes: None Lungs: No focal consolidation. Pleura: No effusion. No pneumothorax. Cardiomediastinal contours: Unremarkable Bones: No acute osseous abnormality. IMPRESSION: 1. No acute cardiopulmonary disease. ATED BY: PINA WEBER Jr., DO DICTATED DATE/TIME: 03/08/251852 SIGNED BY: PINA WEBER Jr., DO SIGNED DATE/TIME: 03/08/251852 CC: Time of 1ST Reevaluation: 20:17 Reevaluation 1ST: Unchanged Patient Education/Counseling: Diagnosis, Treatment Family Education/Counseling: Other Comments The patient presents today with chief complaint of chest pain On initial evaluation, the patient seemed well, slightly hypertensive at 164/84 mmHg, other vitals are within normal range, without overt signs of distress Exam is positive for reproducible pain on palpation of anterior chest wall and epigastrium EKG shows sinus rhythm with probable left atrial enlargement Chest x-ray shows no signs of cardiopulmonary disease CBC and CMP are within normal range, troponins are negative SEPSIS Sepsis Screen Date sepsis recognized/suspect: Mar 08, 2025 Time Sepsis recognized/suspect: 1753 Recent Procedure: No On Antibiotic Therapy: No Respiratory Rate >20: No Heart Rate >90: No Temp<36 C (96.8 F) or >38.3 C: No SBP <90 or MAP <65 mmHG: No New Acute Mental Status Change: No Is the patient on CPAP, BIPAP,: No Physician Orders Chest Portable (03/08/25 17:58) Aspirin Tablet (03/09/25 10:00) Clonidine Hcl Tablet (Catapres Tablet) (03/08/25 21:15) Pantoprazole (Protonix) (03/09/25 10:00) Allergies (03/08/25 21:03) Code Status (03/08/25 21:03) Sodium Chloride Lock (Saline Lock Ns) (03/08/25 22:00) Oxygen Per Hour (03/08/25 21:03) Hydrocodone-Acet 5/325mg Tab ([place] 5/32 (03/08/25 21:15) Ondansetron Hcl (Zofran) (03/08/25 21:15) Docusate Sodium Capsule (Colace Capsule) (03/08/25 21:15) Cardiac Diet-2gna,Lofat,Lochol (03/09/25 Breakfast) Condition: Serious (03/08/25 21:03) Acetaminophen Tablet (Tylenol Tablet) (03/08/25 21:15) Bedrest With Bathroom Privileg (03/08/25 21:03) Sequential Compression Device (03/08/25 ) Vital Signs Date Time Temp Pulse Resp B/P (MAP) Pulse Ox O2 Delivery O2 Flow Rate FiO2 03/08/25 23:19 75 03/08/25 22:25 98.8 71 18 157/70 (99) 99 98.8 03/08/25 22:25 71 18 99 Room Air* 0 21 03/08/25 21:11 71 03/08/25 20:58 167/85 03/08/25 18:55 82 03/08/25 17:57 95 03/08/25 17:54 97.9 92 17 164/81 98 97.9 Laboratory Tests Test 03/08/25 18:05 White Blood Count 7.5 10^3/uL (4.4-10.8) Departure 1 Departure Time of Disposition: 20:17 Impression: Primary Impression: Chest pain Additional Impression: UTI (urinary tract infection) Disposition: ADMITTED INPATIENT Admit to: Tele Condition: Guarded Discharged With: Self Critical Care Note Critical Care Time?: No Stability Stability form required: No Heart Score Heart Score: Heart Score Response (Comments) Value History Slightly Suspicious 0 EKG Normal 0 Age 45-64 1 Risk Factors >3 or Hx ASHD 2 Troponin Normal limit 0 Total 3 SERGIO GAMBOA Mar 08, 2025 20:03 HORACE FLOWERS DO Mar 08, 2025 20:18
--- NOTE | 2025-03-09 11:29 | DVHHP2 ---
History of Present Illness Reason for Visit: Chest pain History of Present Illness The patient is a 59-year-old female with past medical history of hypertension who presented to [facility] ED with complaint of chest pain. Patient reports she has been experiencing substernal chest pain, pressure in nature, rating 8/10 numeric scale, getting worse that prompted this visit. Patient was seen and evaluated in the ED, laboratory data shows WBC 7.5, platelets 253, sodium 138, potassium 3.9, BUN 14, creatinine 0.83, glucose 113, calcium 9.4, troponin 4, blood pressure 160/88, heart rate 82, temperature 97.9 F, O2 saturation 98% on room air. Chest x-ray show no acute cardiopulmonary disease. Patient was given aspirin 325 mg by mouth x1, please see medication orders section in the computer. On my assessment, patient denied chest pain at this moment, no headache, dizziness, diaphoresis, shortness of breaths, no diarrhea, nausea, vomiting, fever, no chills. Patient was admitted for further evaluation and medical management. Past Medical History Hypertension Past Surgical History Denies all surgeries Family History Reviewed, noncontributory to the management of this case. Past Social History The patient lives at home, denies smoking, alcohol or illicit drugs abuse. Review of Systems Constitutional: No: Fever, Chills, Sweats, Weakness, Malaise, Other Eyes: No: Pain, Vision change, Conjunctivae inflammation, Eyelid inflammation, Other, Redness ENT: No: Ear pain, Ear discharge, Nose pain, Nose discharge, Nose congestion, Mouth pain, Mouth swelling, Throat pain, Throat swelling, Other Respiratory: No: Cough, Dry, Shortness of breath, SOB with excertion, Wheezing, Hemoptysis, Pleuritic Pain, Sputum, Wheezing, Other Cardiovascular: Chest Pain; No: Palpitations, Orthopnea, Paroxysmal Noc. Dyspnea, Edema, Lt Headedness, Other Gastrointestinal: No: Nausea, Vomiting, Abdominal Pain, Diarrhea, Constipation, Melena, Hematochezia, Other Genitourinary: No Dysuria, No Frequency, No Incontinence, No Hematuria, No Retention, No Other Musculoskeletal: No: other, neck pain, shoulder pain, arm pain, back pain, hand pain, leg pain, foot pain Skin: No: Rash, Lesions, Jaundice, Bruising, Other Neurological: No: Weakness, Numbness, Incoordination, Change in speech, Confusion, Seizures, Other Allergies: Coded Allergies: No Known Drug Allergy (Verified Allergy, Unknown, 12/08/20) Medications Current Medications Medications Dose Ordered Sig/Nawaf Route Start Time Stop Time Status Last Admin Dose Admin Aspirin 81 mg DAILY PO 03/09/25 10:00 Clonidine HCl 0.1 mg Q4HP PRN PO 03/08/25 21:15 Pantoprazole Sodium 40 mg DAILY IV 03/09/25 10:00 Sodium Chloride 10 ml Q8HR IV 03/08/25 22:00 03/08/25 22:18 10 ML Acetaminophen/ Hydrocodone Bitart 1 tab Q4HP PRN PO 03/08/25 21:15 Ondansetron HCl 4 mg Q4HP PRN IV 03/08/25 21:15 Docusate Sodium 100 mg BIDPRN PRN PO 03/08/25 21:15 Acetaminophen 650 mg Q6HP PRN PO 03/08/25 21:15 Exam Vital Signs Vital Signs Date Time Temp Pulse Resp B/P (MAP) Pulse Ox O2 Delivery O2 Flow Rate FiO2 03/08/25 22:25 98.8 71 18 157/70 (99) 99 98.8 03/08/25 22:25 Room Air* 0 21 General Appearance: Alert, Oriented X3, Cooperative, No acute distress HEENT: Atraumatic, PERRLA, EOMI, Mucous membr. moist/pink Respiratory: Normal air movement Cardiovascular: Regular rate, Normal S1, Normal S2, No murmurs Abdominal: Normal bowel sounds, Soft, No tenderness, No hepatospenomegaly, No masses Extremities: No clubbing, No cyanosis, No edema, Normal pulses, No tenderness/swelling Skin: No rashes, No breakdown, No significant lesion Neuro: Normal speech, Normal tone, Sensation intact, Cranial nerves 3-12 NL, Reflexes 2+ Psych/Mental Status: Mental status NL, Mood NL Labs/Xrays Labs Test 03/08/25 18:54 03/08/25 18:05 Range/Units Troponin I High Sensitivity 3 L </=34 ng/L White Blood Count 7.5 4.4-10.8 10^3/uL Red Blood Count 4.14 4.0-5.20 10^6/uL Hemoglobin 13.8 12.2-16.2 g/dL Hematocrit 39.8 36.0-46.0 % Mean Corpuscular Volume 96.3 80.0-100.0 fL Mean Corpuscular Hemoglobin 33.4 H 28.0-32.0 pg Mean Corpuscular Hemoglobin Concent 34.7 32.0-36.0 g/dL Red Cell Distribution Width 12.4 11.8-14.3 % Platelet Count 253 140-450 10^3/uL Mean Platelet Volume 7.6 6.9-10.8 fL Neutrophils (%) (Auto) 54.7 37.0-80.0 % Lymphocytes (%) (Auto) 35.5 10.0-50.0 % Monocytes (%) (Auto) 8.8 0.0-12.0 % Eosinophils (%) (Auto) 0.5 0.0-7.0 % Basophils (%) (Auto) 0.5 0.0-2.0 % Neutrophils # (Auto) 4.1 1.6-8.6 10 ^3/uL Lymphocytes # (Auto) 2.7 0.4-5.4 10 ^3/uL Monocytes # (Auto) 0.7 0-1.3 10 ^3/uL Eosinophils # (Auto) 0 0-0.8 10 ^3/uL Basophils # (Auto) 0 0-0.2 10 ^3/uL Nucleated Red Blood Cells 0.0 % Sodium Level 138 136-145 mmol/L Potassium Level 3.9 3.5-5.1 mmol/L Chloride Level 104 98-107 mmol/L Carbon Dioxide Level 27 20-31 mmol/L Anion Gap 7 5-15 Blood Urea Nitrogen 14 9-23 mg/dL Creatinine 0.83 0.550-1.02 mg/dL Glomerular Filtration Rate Calc 81 >90 mL/min BUN/Creatinine Ratio 16.9 10.0-20.0 Serum Glucose 113 H 74-106 mg/dL Calcium Level 9.4 8.7-10.4 mg/dL Total Bilirubin 0.3 0.2-1.0 mg/dL Aspartate Amino Transferase (AST) 23 13-40 U/L Alanine Aminotransferase (ALT) 23 7-40 U/L Alkaline Phosphatase 101 46-116 U/L Total Protein 7.8 5.7-8.2 g/dL Albumin 4.6 3.2-4.8 g/dL PATIENT: GAJACK ACCT: [id number] UNIT: [id number] : 1965 LOC: ER ROOM / BED: / AGE / SEX: 59 / F ADM STATUS: REG ER SERVICE 690 ORDERING PHYSICIAN: HORACE FLOWERS DO PROCEDURE(s): CXRP - CHEST PORTABLE REASON: [employer] ORDER NUMBER(s): [id number], ACCESSION NUMBER(s): [id number] CHEST RADIOGRAPH Indication: [employer] Technique: Single frontal view of the chest was obtained Comparison: None FINDINGS: Lines and Tubes: None Lungs: No focal consolidation. Pleura: No effusion. No pneumothorax. Cardiomediastinal contours: Unremarkable Bones: No acute osseous abnormality. IMPRESSION: 1. No acute cardiopulmonary disease. SEPSIS Sepsis Screen Date sepsis recognized/suspect: Mar 08, 2025 Time Sepsis recognized/suspect: 2228 Recent Procedure: No On Antibiotic Therapy: No Respiratory Rate >20: No Heart Rate >90: No Temp<36 C (96.8 F) or >38.3 C: No SBP <90 or MAP <65 mmHG: No New Acute Mental Status Change: No Is the patient on CPAP, BIPAP,: No Physician Orders Chest Portable (03/08/25 17:58) Urinalysis (03/08/25 17:58) Electrocardigram (03/08/25 20:58) Aspirin Tablet (03/09/25 10:00) Clonidine Hcl Tablet (Catapres Tablet) (03/08/25 21:15) Pantoprazole (Protonix) (03/09/25 10:00) Allergies (03/08/25 21:03) Code Status (03/08/25 21:03) Sodium Chloride Lock (Saline Lock Ns) (03/08/25 22:00) Oxygen Per Hour (03/08/25 21:03) Hydrocodone-Acet 5/325mg Tab ([place] 5/32 (03/08/25 21:15) Ondansetron Hcl (Zofran) (03/08/25 21:15) Docusate Sodium Capsule (Colace Capsule) (03/08/25 21:15) Complete Blood Count (03/09/25 04:00) Comprehensive Metabolic Panel (03/09/25 04:00) Cardiac Diet-2gna,Lofat,Lochol (03/09/25 Breakfast) Condition: Serious (03/08/25 21:03) Acetaminophen Tablet (Tylenol Tablet) (03/08/25 21:15) Bedrest With Bathroom Privileg (03/08/25 21:03) Sequential Compression Device (03/08/25 ) Admit (03/08/25 23:47) Nitroglycerin Sublingual (Ntrostat Subli (03/09/25 00:00) Morphine Sulfate Injection (03/09/25 00:00) Stat Ekg For Chest Pain (03/08/25 23:47) Notify Of Changes From Base (03/08/25 23:47) Client Success Director For 24 Hours (03/08/25 23:47) Emergency Dysrhythmia Protocol (03/08/25 23:47) Rhythm Strips Once Every Shift (03/08/25 23:47) Oxygen By Nasal Cannula (03/08/25 23:47) Vital Signs Date Time Temp Pulse Resp B/P (MAP) Pulse Ox O2 Delivery O2 Flow Rate FiO2 03/08/25 22:25 98.8 71 18 157/70 (99) 99 98.8 03/08/25 22:25 71 18 99 Room Air* 0 21 03/08/25 20:58 167/85 03/08/25 18:55 82 03/08/25 17:57 95 03/08/25 17:54 97.9 92 17 164/81 98 97.9 Laboratory Tests Test 03/08/25 18:05 White Blood Count 7.5 10^3/uL (4.4-10.8) Medications Medications Dose Ordered Sig/Nawaf Route Start Time Stop Time Status Last Admin Dose Admin Aspirin 325 mg ONCE ONCE PO 03/08/25 20:30 03/08/25 20:47 DC 03/08/25 21:00 325 MG Lidocaine HCl 10 ml ONCE ONCE PO 03/08/25 20:30 03/08/25 20:47 DC 03/08/25 20:58 10 ML Nitroglycerin 0.4 mg ONCE ONCE SL 03/08/25 20:30 03/08/25 20:47 DC 03/08/25 20:58 0.4 MG Pantoprazole Sodium 40 mg ONCE ONCE PO 03/08/25 20:30 03/08/25 20:47 DC 03/08/25 20:59 40 MG Sodium Chloride 10 ml Q8HR IV 03/08/25 22:00 03/08/25 22:18 10 ML Sucralfate 1 gm ONCE ONCE PO 03/08/25 20:30 03/08/25 20:47 DC 03/08/25 20:58 1 GM Assessment/Plan Assessment/Plan Acute chest pain Hypertension Plan 1. Admit to telemetry unit 2. Breathing treatment 3. Pain control management 4. Management of fluids and electrolytes 5. Consultation for hospitalist 6. Diagnostic tests chest x-ray 7. DVT prophylaxis-on aspirin 8. Repeat labs CBC, CMP in a.m. 9. Continue with current medical management 10. Treatment plan discussed with patient and RN. Patient verbalized understanding. Plan discussed with: Patient, Other (RN) My Orders Orders - DONNY REAL DNP Procedure Category Date Status Time Aspirin Tablet PHA 03/09/25 In Process 10:00 Clonidine Hcl Tablet PHA 03/08/25 In Process (Catapres Tablet) 21:15 Pantoprazole PHA 03/09/25 In Process (Protonix) 10:00 Allergies [place] 03/08/25 In Process 21:03 Code Status CODE 03/08/25 Transmitted 21:03 Sodium Chloride Lock PHA 03/08/25 In Process (Saline Lock Ns) 22:00 Oxygen Per Hour RT 03/08/25 Transmitted 21:03 Hydrocodone-Acet PHA 03/08/25 In Process 5/325mg Tab ([place] 21:15 Ondansetron Hcl PHA 03/08/25 In Process (Zofran) 21:15 Docusate Sodium PHA 03/08/25 In Process Capsule (Colace 21:15 Complete Blood Count LAB 03/09/25 Verified 04:00 Comprehensive LAB 03/09/25 Verified Metabolic Panel 04:00 Cardiac DIET 03/09/25 Transmitted Diet-2gna,Lofat,Lochol Breakfast Condition: Serious [place] 03/08/25 In Process 21:03 Acetaminophen Tablet PHA 03/08/25 In Process (Tylenol Tablet) 21:15 Bedrest With Bathroom [place] 03/08/25 In Process Privileg 21:03 Sequential [place] 03/08/25 In Process Compression Device Admit ADMIT 03/08/25 Verified 23:47 Nitroglycerin PHA 03/09/25 Verified Sublingual (Ntrostat 00:00 Morphine Sulfate PHA 03/09/25 Verified Injection 00:00 Stat Ekg For Chest [facility] 03/08/25 Verified Pain 23:47 Notify Md Of Changes [facility] 03/08/25 Verified From Base 23:47 Client Success Director For [facility] 03/08/25 Verified 24 Hours 23:47 Emergency Dysrhythmia [facility] 03/08/25 Verified Protocol 23:47 Rhythm Strips Once [facility] 03/08/25 Verified Every Shift 23:47 Oxygen By Nasal RT 03/08/25 Verified Cannula 23:47 Problem List: (1) Chest pain (2) Hypertension Date of Service: Mar 08, 2025 Billing Provider: DONNY REAL DNP Common Visit Codes: [id number] INP/OBS CARE (HIGH) DONNY REAL DNP Mar 08, 2025 23:48
--- NOTE | 2025-03-09 22:52 | DVHPN2 ---
Subjective The patient seen and examined at bedside. Still have chest pain. Reviewed: Care Plan, H&P, Labs, Medications, Previous Orders, Radiology Changes from previous H/P or p: No Changes Eyes: No Pain, No Vision change, No Conjunctivae inflammation, No Eyelid inflammation, No Other, No Redness ENT: No Ear pain, No Ear discharge, No Nose pain, No Nose discharge, No Nose congestion, No Mouth pain, No Mouth swelling, No Throat pain, No Throat swelling, No Other Cardiovascular: Chest Pain; No Palpitations, No Orthopnea, No Paroxysmal Noc. Dyspnea, No Edema, No Lt Headedness, No Other Respiratory: No Cough, No Dry, No Shortness of breath, No SOB with excertion, No Wheezing, No Hemoptysis, No Pleuritic Pain, No Sputum, No Other Gastrointestinal: No Nausea, No Vomiting, No Abdominal Pain, No Diarrhea, No Constipation, No Melena, No Hematochezia, No Other Genitourinary: No Dysuria, No Frequency, No Incontinence, No Hematuria, No Retention, No Other Musculoskeletal: No other, No neck pain, No shoulder pain, No arm pain, No back pain, No hand pain, No leg pain, No foot pain Skin: No Rash, No Lesions, No Jaundice, No Bruising, No Other Objective Vitals Vital Signs Date Time Temp Pulse Resp B/P (MAP) Pulse Ox O2 Delivery O2 Flow Rate FiO2 03/09/25 17:00 97.9 70 18 134/82 (99) 98 97.9 03/09/25 08:00 Room Air* 0 21 Intake/Output Intake and Output 03/09/25 07:00 Intake Total 0 ml Balance 0 ml Intake Oral 0 ml # Voids 1 General Appearance: Alert, Oriented X3, Cooperative, No acute distress HEENT: Atraumatic, PERRLA, EOMI, Mucous membr. moist/pink Neck: Supple Lungs: Clear to auscultation, Normal air movement Cardiovascular: Regular rate, Normal S1, Normal S2, No murmurs, Gallops, Rubs Abdomen: Normal bowel sounds, Soft, No tenderness Neuro: Cranial nerves 3-12 NL Psych/Mental Status: Mental status NL Medications Current Medications Medications Dose Ordered Sig/Nawaf Route Start Time Stop Time Status Last Admin Dose Admin Aspirin 81 mg DAILY PO 03/09/25 10:00 03/09/25 09:19 81 MG Clonidine HCl 0.1 mg Q4HP PRN PO 03/08/25 21:15 Pantoprazole Sodium 40 mg DAILY IV 03/09/25 10:00 03/09/25 09:19 40 MG Sodium Chloride 10 ml Q8HR IV 03/08/25 22:00 03/09/25 21:52 10 ML Acetaminophen/ Hydrocodone Bitart 1 tab Q4HP PRN PO 03/08/25 21:15 Ondansetron HCl 4 mg Q4HP PRN IV 03/08/25 21:15 Docusate Sodium 100 mg BIDPRN PRN PO 03/08/25 21:15 Acetaminophen 650 mg Q6HP PRN PO 03/08/25 21:15 Nitroglycerin 0.4 mg Q5MINP PRN SL 03/09/25 00:00 03/09/25 04:19 0.4 MG Morphine Sulfate 2 mg Q30M PRN IV 03/09/25 00:00 Laboratory Results Laboratory Tests 03/09/25 04:43 Chemistry Test 03/09/25 04:43 Albumin 4.4 g/dL (3.2-4.8) Calcium Level 9.6 mg/dL (8.7-10.4) Total Protein 7.3 g/dL (5.7-8.2) LFT Test 03/09/25 04:43 Alanine Aminotransferase (ALT) 23 U/L (7-40) Alkaline Phosphatase 77 U/L (46-116) Aspartate Amino Transferase (AST) 23 U/L (13-40) Total Bilirubin 0.6 mg/dL (0.2-1.0) Urinalysis Test 03/09/25 08:10 Urine Color Yellow (Yellow) Urine Clarity Turbid (Clear) H Urine pH 5.5 (5.0-9.0) Urine Specific [place] 1.028 (1.001-1.035) Urine Protein Trace (Negative) H Urine Ketones Negative (Negative) Urine Blood Trace /uL (Negative) H Urine Nitrite Negative (Negative) Urine Bilirubin Negative (Negative) Urine Urobilinogen Normal mg/dL (Negative) Urine Leukocyte Esterase 3+ /uL (Negative) Urine RBC 8 /hpf (0 - 4) Urine Microscopic WBC 30 /HPF (0-5) H Urine Squamous Epithelial Cells Few /hpf (<5) Urine Bacteria Few /hpf (None Seen) H Urine Mucus Few (None Seen) Urine Yeast (Budding) Occasional /hpf (None Urine Glucose 1+ mg/dL (Normal) H Labs and/or images reviewed: Labs reviewed by me Assessment/Plan Assessment/Plan Acute chest pain Hypertension Continue curent management. Continue with HTN meds Will consult cardiology Will order 2 D echo. Plan discussed with: Patient My Orders Orders - ARLEEN NGUYEN MD Procedure Category Date Status Time * Cardiology Consult CONS 03/09/25 Transmitted 17:04 Echo 2d Mode Cardiac US 03/09/25 Logged DOP 17:04 Date of Service: Mar 09, 2025 Billing Provider: ARLEEN NGUYEN MD Common Visit Codes: [id number] INP/OBS CARE(HIGH) ARLEEN NGUYEN MD Mar 09, 2025 22:52
[2025-03-10] VITALS (9 sets, daily range): BP systolic 121–153; BP diastolic 67–91; PULSE 59–73; RESP 16–20; TEMP 97.7–98.7; O2SAT 94–99
--- NOTE | 2025-03-10 12:35 | DVHINCON2 ---
Date Seen: Mar 10, 2025 Referring Physician MD Chloe Reason for Consultation Chest pain History of Present Illness This is a 59-year-old female patient who presents to emergency room with chief complaint of chest pain for two days prior to emergency room arrival. She describes the pain as unprovoked, intermittent, tight in nature, left-sided and nonradiating. Associated symptoms include headache. Initial twelve lead electrocardiogram found in patient's hard chart reveals normal sinus rhythm without any significant ST segment changes. Serial troponin levels have been negative. Significant past medical history includes hypertension, dyslipidemia, prediabetes, breast cancer status post left breast mastectomy, tobacco use, and obesity. Past Medical History Past medical history reviewed. No other significant than mentioned above. Past Surgical History Left breast mastectomy in 2018 Family History Family history reviewed. Social History Patient has a 10 pack-year history, smokes approximately half a pack per day Patient admits to social alcohol use Patient denies any drug use Allergies: Coded Allergies: No Known Drug Allergy (Verified Allergy, Unknown, 12/08/20) Home Meds Active Scripts Ibuprofen (Ibuprofen) 800 Mg Tab, 1 TAB PO TID, #30 TAB Prov:FRANCES URRUTIA 01/24/25 Reported Medications Amlodipine Besylate (Amlodipine Besylate) 5 Mg Tab, 5 MG PO DAILY for 30 Days, MG 03/09/25 Hydrochlorothiazide (Hydrochlorothiazide) 25 Mg Tab, 25 MG PO DAILY for 30 Days, MG 03/09/25 Losartan Potassium (Losartan Potassium) 100 Mg Tab, 100 MG PO DAILY for 30 Days, MG 03/09/25 Home Meds Home medications reviewed. Review of Systems Constitutional: No symptom reported Ears, Nose, & Throat: No symptom reported Eyes: No symptom reported Neurological: No symptoms reported Pulmonary/Respiratory: No symptoms reported Cardiovascular: Chest pain Gastrointestinal: No symptom reported Genitourinary: No symptom reported Musculoskeletal: No symptom reported Skin: No symptom reported Psychiatric: No symptom reported Endocrine: No symptom reported Hematologic/Lymphatic: No symptom reported Vital Signs Vital Signs Date Time Temp Pulse Resp B/P (MAP) Pulse Ox O2 Delivery O2 Flow Rate FiO2 03/10/25 09:00 97.8 73 20 133/85 (101) 94 97.8 03/10/25 08:00 Room Air* 0 21 Physical Exam General Appearance: Cooperative. Obese Pulmonary/Respiratory: Clear, bilateral breaths sounds. Cardiovascular/Chest: Regular rate and rhythm. Peripheral Pulses: 2+ Radial (R). 2+ Radial (L). 2+ Pedal (R). 2+ Pedal (L) Abdominal Exam: Normal bowel sounds. Ankle Exam: Negative ankle edema Lower extremities: Negative lower extremity edema Neuro/Mental Status: A/OX4, coherent. Thoughts/Psych: Normal thought pattern. Appropriate mood and affect. Good judgment and insight. Appearance: No acute distress. Skin Exam: Normal inspection. Normal color. Warm and dry. Labs/Diagnostic Data Labs Test 03/09/25 08:10 03/09/25 04:43 03/08/25 18:54 Range/Units Urine Color Yellow Yellow Urine Clarity Turbid H Clear Urine pH 5.5 5.0-9.0 Urine Specific [place] 1.028 1.001-1.035 Urine Protein Trace H Negative Urine Ketones Negative Negative Urine Blood Trace H Negative /uL Urine Nitrite Negative Negative Urine Bilirubin Negative Negative Urine Urobilinogen Normal Negative mg/dL Urine Leukocyte Esterase 3+ Negative /uL Urine RBC 8 0 - 4 /hpf Urine Microscopic WBC 30 H 0-5 /HPF Urine Squamous Epithelial Cells Few <5 /hpf Urine Bacteria Few H None Seen /hpf Urine Mucus Few None Seen Urine Yeast (Budding) Occasional None Seen /hpf Urine Glucose 1+ H Normal mg/dL White Blood Count 6.3 4.4-10.8 10^3/uL Red Blood Count 4.04 4.0-5.20 10^6/uL Hemoglobin 13.6 12.2-16.2 g/dL Hematocrit 39.0 36.0-46.0 % Mean Corpuscular Volume 96.5 80.0-100.0 fL Mean Corpuscular Hemoglobin 33.7 H 28.0-32.0 pg Mean Corpuscular Hemoglobin Concent 34.9 32.0-36.0 g/dL Red Cell Distribution Width 12.3 11.8-14.3 % Platelet Count 249 140-450 10^3/uL Mean Platelet Volume 8.1 6.9-10.8 fL Neutrophils (%) (Auto) 60.2 37.0-80.0 % Lymphocytes (%) (Auto) 29.5 10.0-50.0 % Monocytes (%) (Auto) 9.0 0.0-12.0 % Eosinophils (%) (Auto) 0.3 0.0-7.0 % Basophils (%) (Auto) 1.0 0.0-2.0 % Neutrophils # (Auto) 3.8 1.6-8.6 10 ^3/uL Lymphocytes # (Auto) 1.9 0.4-5.4 10 ^3/uL Monocytes # (Auto) 0.6 0-1.3 10 ^3/uL Eosinophils # (Auto) 0 0-0.8 10 ^3/uL Basophils # (Auto) 0.1 0-0.2 10 ^3/uL Nucleated Red Blood Cells 0.0 % Sodium Level 141 136-145 mmol/L Potassium Level 3.4 L 3.5-5.1 mmol/L Chloride Level 108 H 98-107 mmol/L Carbon Dioxide Level 23 20-31 mmol/L Anion Gap 10 5-15 Blood Urea Nitrogen 10 9-23 mg/dL Creatinine 0.55 # 0.550-1.02 mg/dL Glomerular Filtration Rate Calc 106 >90 mL/min BUN/Creatinine Ratio 18.2 10.0-20.0 Serum Glucose 111 H 74-106 mg/dL Calcium Level 9.6 8.7-10.4 mg/dL Total Bilirubin 0.6 0.2-1.0 mg/dL Aspartate Amino Transferase (AST) 23 13-40 U/L Alanine Aminotransferase (ALT) 23 7-40 U/L Alkaline Phosphatase 77 46-116 U/L Total Protein 7.3 5.7-8.2 g/dL Albumin 4.4 3.2-4.8 g/dL Troponin I High Sensitivity 3 L </=34 ng/L Assessment Chest pain, rule out coronary ischemia Hypertensive urgency Dyslipidemia, newly diagnosed Rule out structural heart disease History of breast cancer status post left mastectomy Obesity Tobacco use Plan/Recommendation We will continue with the following plan/recommendations (Dr. Pride): * Transthoracic echocardiogram to evaluate cardiac function * Aggressive blood pressure control as tolerated * Single antiplatelet therapy and lipid-lowering agent * Nuclear stress test * Close cardiac surveillance Patient seen and examined at bedside with . Plan for nuclear stress test on 03/12/2025. Thank you for allowing us to care for this patient. Please call with any questions or concerns. Critical care time spent: 44 minutes This medical document was created using an electronic medical record system with voice recognition software and computerized dictation system. Although this document has been carefully reviewed, there might still be some phonetic and typographical errors. Occasional wrong-word or ``sound-alike substitutions may have occurred due to the inherent limitations of voice recognition software. These areas are purely typographical due to imperfections of the software programs and do not reflect any compromise in the patient's medical care. Please read the chart carefully and recognize, using context, where these substitutions have occurred. Plan discussed with: Patient NYHA Physical activity limitations: NA Date of Service: Mar 10, 2025 Billing Provider: JORY MCGOVERN Cardiology Common Codes: [id number] INP/OBS CARE (High) Cardiology Consultation Codes: [id number] CONSULT <45MIN JORY MCGOVERN Mar 10, 2025 12:34
[2025-03-10] MEDS: LOSARTAN POTASSIUM 50 MG TAB PO ONE (13:43)
[2025-03-10 14:29] LABS: Magnesium 1.6 mg/dL (1.6-2.6)
[2025-03-10 14:30] LABS: HDL Cholesterol 46.0 mg/dL (40-59)
[2025-03-10 14:33] LABS: Cholesterol 207.0 mg/dL (< 200)
[2025-03-10 14:39] LABS: Triglycerides 106.0 mg/dL (< 150)
[2025-03-10 14:44] LABS: Chloride 106 mmol/L (98-107); Potassium 4.2 mmol/L (3.5-5.1); Sodium 140 mmol/L (136-145)
[2025-03-10 14:45] LABS: Anion Gap 11 (5-15); Carbon Dioxide 23 mmol/L (20-31)
[2025-03-10 14:46] LABS: Calcium 9.2 mg/dL (8.7-10.4)
[2025-03-10 14:51] LABS: BUN/Creatinine Ratio 18.2 (10.0-20.0); Blood Urea Nitrogen 14 mg/dL (9-23); Glucose 153 mg/dL (74-106)
--- NOTE | 2025-03-10 15:02 | DVHPN2 ---
Subjective The patient seen and examined at bedside. Still have chest pain. Waiting for stress test to be done per Dr Pride, funeral attendant. Reviewed: Care Plan, H&P, Labs, Medications, Previous Orders, Radiology Changes from previous H/P or p: No Changes Eyes: No Pain, No Vision change, No Conjunctivae inflammation, No Eyelid inflammation, No Other, No Redness ENT: No Ear pain, No Ear discharge, No Nose pain, No Nose discharge, No Nose congestion, No Mouth pain, No Mouth swelling, No Throat pain, No Throat swelling, No Other Cardiovascular: Chest Pain; No Palpitations, No Orthopnea, No Paroxysmal Noc. Dyspnea, No Edema, No Lt Headedness, No Other Respiratory: No Cough, No Dry, No Shortness of breath, No SOB with excertion, No Wheezing, No Hemoptysis, No Pleuritic Pain, No Sputum, No Other Gastrointestinal: No Nausea, No Vomiting, No Abdominal Pain, No Diarrhea, No Constipation, No Melena, No Hematochezia, No Other Genitourinary: No Dysuria, No Frequency, No Incontinence, No Hematuria, No Retention, No Other Musculoskeletal: No other, No neck pain, No shoulder pain, No arm pain, No back pain, No hand pain, No leg pain, No foot pain Skin: No Rash, No Lesions, No Jaundice, No Bruising, No Other Objective Vitals Vital Signs Date Time Temp Pulse Resp B/P (MAP) Pulse Ox O2 Delivery O2 Flow Rate FiO2 03/10/25 13:43 144/88 03/10/25 13:00 98.1 68 20 98 98.1 03/10/25 08:00 Room Air* 0 21 Intake/Output Intake and Output 03/10/25 07:00 Intake Total 1180 ml Balance 1180 ml Intake Oral 1180 ml # Voids 5 # Bowel Movements 2 General Appearance: Alert, Oriented X3, Cooperative, No acute distress HEENT: Atraumatic, PERRLA, EOMI, Mucous membr. moist/pink Neck: Supple Lungs: Clear to auscultation, Normal air movement Cardiovascular: Regular rate, Normal S1, Normal S2, No murmurs, Gallops, Rubs Abdomen: Normal bowel sounds, Soft, No tenderness Neuro: Cranial nerves 3-12 NL Psych/Mental Status: Mental status NL Medications Current Medications Medications Dose Ordered Sig/Nawaf Route Start Time Stop Time Status Last Admin Dose Admin Aspirin 81 mg DAILY PO 03/09/25 10:00 03/10/25 09:41 81 MG Clonidine HCl 0.1 mg Q4HP PRN PO 03/08/25 21:15 Pantoprazole Sodium 40 mg DAILY IV 03/09/25 10:00 03/10/25 09:41 40 MG Sodium Chloride 10 ml Q8HR IV 03/08/25 22:00 03/10/25 14:50 10 ML Acetaminophen/ Hydrocodone Bitart 1 tab Q4HP PRN PO 03/08/25 21:15 Ondansetron HCl 4 mg Q4HP PRN IV 03/08/25 21:15 Docusate Sodium 100 mg BIDPRN PRN PO 03/08/25 21:15 Acetaminophen 650 mg Q6HP PRN PO 03/08/25 21:15 Nitroglycerin 0.4 mg Q5MINP PRN SL 03/09/25 00:00 03/09/25 04:19 0.4 MG Morphine Sulfate 2 mg Q30M PRN IV 03/09/25 00:00 Losartan Potassium 50 mg DAILY PO 03/11/25 10:00 Amlodipine Besylate 5 mg DAILY PO 03/11/25 10:00 Laboratory Results Laboratory Tests 03/09/25 04:43 03/10/25 13:41 Chemistry Test 03/10/25 13:41 Calcium Level 9.2 mg/dL (8.7-10.4) Magnesium Level 1.6 mg/dL (1.6-2.6) Lipid panel Test 03/10/25 13:41 Cholesterol Level 207 mg/dL (< 200) H HDL Cholesterol 46 mg/dL (40-59) Triglycerides Level 106 mg/dL (< 150) HgA1c, TSH Test 03/10/25 13:41 Hemoglobin A1c 5.7 % A1C (<5.7) Thyroid Stimulating Hormone (TSH) 2.07 uIU/mL (0.55-4.78) Urinalysis Test 03/09/25 08:10 Urine Color Yellow (Yellow) Urine Clarity Turbid (Clear) H Urine pH 5.5 (5.0-9.0) Urine Specific [place] 1.028 (1.001-1.035) Urine Protein Trace (Negative) H Urine Ketones Negative (Negative) Urine Blood Trace /uL (Negative) H Urine Nitrite Negative (Negative) Urine Bilirubin Negative (Negative) Urine Urobilinogen Normal mg/dL (Negative) Urine Leukocyte Esterase 3+ /uL (Negative) Urine RBC 8 /hpf (0 - 4) Urine Microscopic WBC 30 /HPF (0-5) H Urine Squamous Epithelial Cells Few /hpf (<5) Urine Bacteria Few /hpf (None Seen) H Urine Mucus Few (None Seen) Urine Yeast (Budding) Occasional /hpf (None Urine Glucose 1+ mg/dL (Normal) H Labs and/or images reviewed: Labs reviewed by me Assessment/Plan Assessment/Plan Acute chest pain Hypertension History of left breast cancer, status post mastectomy and radiation. Continue curent management. Continue with HTN meds Appreciate funeral attendant's input Waiting for stress test Will follow 2 D echo. Plan discussed with: Patient My Orders Orders - ARLEEN NGUYEN MD Procedure Category Date Status Time * Cardiology Consult CONS 03/09/25 Transmitted 17:04 Date of Service: Mar 10, 2025 Billing Provider: ARLEEN NGUYEN MD Common Visit Codes: [id number] INP/OBS CARE(HIGH) ARLEEN NGUYEN MD Mar 10, 2025 15:02
[2025-03-10] MEDS: ATORVASTATIN 20 MG TAB PO SCH (21:38)
--- NOTE | 2025-03-10 21:59 | DVHSR ---
APPROVED REPORT EXAM: LIMITED Two-dimensional and M-mode echocardiogram with Doppler and color Doppler. Blood Pressure: 133/85 mmHg INDICATION Chest Pain RISK FACTORS Height: 5' 3", Weight: 180 DIMENSIONS LVDd5.0 (3.8-5.7cm)LA (2D)3.6 (1.9-4.0cm)Aortic Root2.5 (2.0-3.7cm) LVDs3.0 (2.5-4.0cm)LA (MM) (1.9-4.0cm)Aortic Cusp Exc1.7 (1.5-2.0cm) EF (%) 65.0 (55-70%)Rt. Atrium3.9 (1.9-4.0cm)Asc. Aorta cm IVSd0.7 (0.7-1.1cm)RV (D) (1.8-2.4cm) PWd0.9 (0.7-1.1cm) Mitral Valve MitralMitral Stenosis E wave1.00m/sMV Mean GR.mmHg A wave1.10m/sMV Peak GR.61mmHg E/A ratio0.92D MVAcm2 Aortic Valve Aortic ValveAortic Stenosis V11.30m/Toshia Mean GR.4mmHg V21.50m/Toshia Peak GR.9mmHg LVOT Diameter2.1 (1.8-2.4cm)Doppler AVA3.00cm2 Other Information Quality : Technically LimitedRhythm : Technically limited study due to body habitus. Conclusion MILDLVH AND MILD LV DIASTOLIC DYSFUNCTION LV EF IS 65% AND IS NORMAL NORMAL VALVES NO EFFUSION
--- NOTE | 2025-03-10 22:55 | DVHINCON2 ---
Date Seen: Mar 10, 2025 Referring Physician MD Chloe Reason for Consultation Chest pain History of Present Illness This is a 59-year-old female with a past medical history of hypertension, dyslipidemia, prediabetes, breast cancer status post left breast mastectomy, tobacco use, and obesity who presents to emergency room with a complaint of chest pain for two days prior to emergency room arrival. She describes the pain as unprovoked, intermittent, tight in nature, left-sided and nonradiating. Associated symptoms include headache. Initial twelve lead electrocardiogram found in patient's hard chart reveals normal sinus rhythm without any significant ST segment changes. Serial troponin levels have been negative. Chest x-ray showed NAD. Patient was admitted to the hospital. I am asked to consult on this patient. Past Medical History Past medical history reviewed. No other significant than mentioned above. Past Surgical History Left breast mastectomy in 2018 Allergies: Coded Allergies: No Known Drug Allergy (Verified Allergy, Unknown, 12/08/20) Home Meds Active Scripts Ibuprofen (Ibuprofen) 800 Mg Tab, 1 TAB PO TID, #30 TAB Prov:FRANCES URRUTIA 01/24/25 Reported Medications Amlodipine Besylate (Amlodipine Besylate) 5 Mg Tab, 5 MG PO DAILY for 30 Days, MG 03/09/25 Hydrochlorothiazide (Hydrochlorothiazide) 25 Mg Tab, 25 MG PO DAILY for 30 Days, MG 03/09/25 Losartan Potassium (Losartan Potassium) 100 Mg Tab, 100 MG PO DAILY for 30 Days, MG 03/09/25 Current Medications Current Medications Medications (Trade) Dose Ordered Sig/Nawaf Route PRN Reason Start Time Stop Time Status Last Admin Losartan Potassium (Cozaar Tablet) 50 mg DAILY PO 03/11/25 10:00 Amlodipine Besylate (Norvasc Tablet) 5 mg DAILY PO 03/11/25 10:00 Atorvastatin Calcium (Lipitor) 20 mg HS PO 03/10/25 22:00 Review of Systems Constitutional: No symptom reported Ears, Nose, & Throat: No symptom reported Eyes: No symptom reported Neurological: No symptoms reported Pulmonary/Respiratory: No symptoms reported Cardiovascular: Chest pain Gastrointestinal: No symptom reported Genitourinary: No symptom reported Musculoskeletal: No symptom reported Skin: No symptom reported Psychiatric: No symptom reported Endocrine: No symptom reported Hematologic/Lymphatic: No symptom reported Vital Signs Vital Signs Date Time Temp Pulse Resp B/P (MAP) Pulse Ox O2 Delivery O2 Flow Rate FiO2 03/10/25 17:00 98.6 65 20 146/91 (109) 98 98.6 03/10/25 08:00 Room Air* 0 21 Physical Exam GENERAL: Alert and oriented x 3. No acute distress. Obese. EYES: PERRL, EOMI. Anicteric. HENT: Moist mucous membranes. LUNGS: Clear to auscultation bilaterally. CARDIOVASCULAR: Regular rate and rhythm. ABDOMEN: Soft, nontender and nondistended. EXTREMITIES: No edema. NEUROLOGIC: No focal neurological deficits. SKIN: Warm, dry. Labs/Diagnostic Data Labs Test 03/10/25 13:41 03/09/25 08:10 03/09/25 04:43 03/08/25 18:54 Range/Units Sodium Level 140 136-145 mmol/L Potassium Level 4.2 3.5-5.1 mmol/L Chloride Level 106 98-107 mmol/L Carbon Dioxide Level 23 20-31 mmol/L Anion Gap 11 5-15 Blood Urea Nitrogen 14 9-23 mg/dL Creatinine 0.77 # 0.550-1.02 mg/dL Glomerular Filtration Rate Calc 89 >90 mL/min BUN/Creatinine Ratio 18.2 10.0-20.0 Serum Glucose 153 H 74-106 mg/dL Hemoglobin A1c 5.7 <5.7 % A1C Calcium Level 9.2 8.7-10.4 mg/dL Magnesium Level 1.6 1.6-2.6 mg/dL Triglycerides Level 106 < 150 mg/dL Cholesterol Level 207 H < 200 mg/dL LDL Cholesterol 144 H < 100 mg/dL HDL Cholesterol 46 40-59 mg/dL Thyroid Stimulating Hormone (TSH) 2.07 0.55-4.78 uIU/mL Urine Color Yellow Yellow Urine Clarity Turbid H Clear Urine pH 5.5 5.0-9.0 Urine Specific [place] 1.028 1.001-1.035 Urine Protein Trace H Negative Urine Ketones Negative Negative Urine Blood Trace H Negative /uL Urine Nitrite Negative Negative Urine Bilirubin Negative Negative Urine Urobilinogen Normal Negative mg/dL Urine Leukocyte Esterase 3+ Negative /uL Urine RBC 8 0 - 4 /hpf Urine Microscopic WBC 30 H 0-5 /HPF Urine Squamous Epithelial Cells Few <5 /hpf Urine Bacteria Few H None Seen /hpf Urine Mucus Few None Seen Urine Yeast (Budding) Occasional None Seen /hpf Urine Glucose 1+ H Normal mg/dL White Blood Count 6.3 4.4-10.8 10^3/uL Red Blood Count 4.04 4.0-5.20 10^6/uL Hemoglobin 13.6 12.2-16.2 g/dL Hematocrit 39.0 36.0-46.0 % Mean Corpuscular Volume 96.5 80.0-100.0 fL Mean Corpuscular Hemoglobin 33.7 H 28.0-32.0 pg Mean Corpuscular Hemoglobin Concent 34.9 32.0-36.0 g/dL Red Cell Distribution Width 12.3 11.8-14.3 % Platelet Count 249 140-450 10^3/uL Mean Platelet Volume 8.1 6.9-10.8 fL Neutrophils (%) (Auto) 60.2 37.0-80.0 % Lymphocytes (%) (Auto) 29.5 10.0-50.0 % Monocytes (%) (Auto) 9.0 0.0-12.0 % Eosinophils (%) (Auto) 0.3 0.0-7.0 % Basophils (%) (Auto) 1.0 0.0-2.0 % Neutrophils # (Auto) 3.8 1.6-8.6 10 ^3/uL Lymphocytes # (Auto) 1.9 0.4-5.4 10 ^3/uL Monocytes # (Auto) 0.6 0-1.3 10 ^3/uL Eosinophils # (Auto) 0 0-0.8 10 ^3/uL Basophils # (Auto) 0.1 0-0.2 10 ^3/uL Nucleated Red Blood Cells 0.0 % Total Bilirubin 0.6 0.2-1.0 mg/dL Aspartate Amino Transferase (AST) 23 13-40 U/L Alanine Aminotransferase (ALT) 23 7-40 U/L Alkaline Phosphatase 77 46-116 U/L Total Protein 7.3 5.7-8.2 g/dL Albumin 4.4 3.2-4.8 g/dL Troponin I High Sensitivity 3 L </=34 ng/L Assessment Chest pain, rule out coronary ischemia. Hypertensive urgency. Dyslipidemia, newly diagnosed. Rule out structural heart disease. History of breast cancer status post left mastectomy. Obesity. Tobacco use. Plan/Recommendation I agree with your ongoing assessment and care of plan. Patient has been seen by Rosa Maria Cassidy NP on my behalf, her and I discussed the plan with the patient. Transthoracic echocardiogram to evaluate cardiac function. Aggressive blood pressure control as tolerated. Single antiplatelet therapy and lipid-lowering agent. Nuclear stress test. Close cardiac surveillance. Plan for nuclear stress test on 03/12/2025. Additional plan as per the hospital course. Plan discussed with: Patient NYHA Physical activity limitations: NA Date of Service: Mar 10, 2025 Billing Provider: DIEGO MALONE MD Cardiology Common Codes: [id number] INP/OBS CARE (High) Cardiology Consultation Codes: [id number] CONSULT <45MIN DIEGO MALONE MD Mar 10, 2025 20:59
[2025-03-11] VITALS (8 sets, daily range): BP systolic 130–158; BP diastolic 78–85; PULSE 63–100; RESP 16–20; TEMP 98–98.8; O2SAT 95–99
[2025-03-11] MEDS: LOSARTAN POTASSIUM 50 MG TAB PO SCH (08:59)
--- NOTE | 2025-03-11 13:28 | DVHPN2 ---
Subjective The patient seen and examined at bedside. Still have chest pain. Waiting for stress test to be done per Dr Pride, coin purse assembler. Reviewed: Care Plan, H&P, Labs, Medications, Previous Orders, Radiology Changes from previous H/P or p: No Changes Eyes: No Pain, No Vision change, No Conjunctivae inflammation, No Eyelid inflammation, No Other, No Redness ENT: No Ear pain, No Ear discharge, No Nose pain, No Nose discharge, No Nose congestion, No Mouth pain, No Mouth swelling, No Throat pain, No Throat swelling, No Other Cardiovascular: Chest Pain; No Palpitations, No Orthopnea, No Paroxysmal Noc. Dyspnea, No Edema, No Lt Headedness, No Other Respiratory: No Cough, No Dry, No Shortness of breath, No SOB with excertion, No Wheezing, No Hemoptysis, No Pleuritic Pain, No Sputum, No Other Gastrointestinal: No Nausea, No Vomiting, No Abdominal Pain, No Diarrhea, No Constipation, No Melena, No Hematochezia, No Other Genitourinary: No Dysuria, No Frequency, No Incontinence, No Hematuria, No Retention, No Other Musculoskeletal: No other, No neck pain, No shoulder pain, No arm pain, No back pain, No hand pain, No leg pain, No foot pain Skin: No Rash, No Lesions, No Jaundice, No Bruising, No Other Objective Vitals Vital Signs Date Time Temp Pulse Resp B/P (MAP) Pulse Ox O2 Delivery O2 Flow Rate FiO2 03/11/25 09:00 98.0 69 20 158/83 (108) 97 98.0 03/11/25 08:00 Room Air* 0 21 Intake/Output Intake and Output 03/11/25 07:00 Intake Total 2000 ml Balance 2000 ml Intake Oral 2000 ml # Voids 7 # Bowel Movements 1 General Appearance: Alert, Oriented X3, Cooperative, No acute distress HEENT: Atraumatic, PERRLA, EOMI, Mucous membr. moist/pink Neck: Supple Lungs: Clear to auscultation, Normal air movement Cardiovascular: Regular rate, Normal S1, Normal S2, No murmurs, Gallops, Rubs Abdomen: Normal bowel sounds, Soft, No tenderness Neuro: Cranial nerves 3-12 NL Psych/Mental Status: Mental status NL Medications Current Medications Medications Dose Ordered Sig/Nawaf Route Start Time Stop Time Status Last Admin Dose Admin Aspirin 81 mg DAILY PO 03/09/25 10:00 03/11/25 08:59 81 MG Clonidine HCl 0.1 mg Q4HP PRN PO 03/08/25 21:15 Pantoprazole Sodium 40 mg DAILY IV 03/09/25 10:00 03/11/25 08:58 40 MG Sodium Chloride 10 ml Q8HR IV 03/08/25 22:00 03/11/25 13:03 10 ML Acetaminophen/ Hydrocodone Bitart 1 tab Q4HP PRN PO 03/08/25 21:15 Ondansetron HCl 4 mg Q4HP PRN IV 03/08/25 21:15 Docusate Sodium 100 mg BIDPRN PRN PO 03/08/25 21:15 Acetaminophen 650 mg Q6HP PRN PO 03/08/25 21:15 Nitroglycerin 0.4 mg Q5MINP PRN SL 03/09/25 00:00 03/09/25 04:19 0.4 MG Morphine Sulfate 2 mg Q30M PRN IV 03/09/25 00:00 Losartan Potassium 50 mg DAILY PO 03/11/25 10:00 03/11/25 08:59 50 MG Amlodipine Besylate 5 mg DAILY PO 03/11/25 10:00 03/11/25 09:00 5 MG Atorvastatin Calcium 20 mg HS PO 03/10/25 22:00 03/10/25 21:38 20 MG Laboratory Results Laboratory Tests 03/09/25 04:43 03/10/25 13:41 Chemistry Test 03/10/25 13:41 Calcium Level 9.2 mg/dL (8.7-10.4) Magnesium Level 1.6 mg/dL (1.6-2.6) Lipid panel Test 03/10/25 13:41 Cholesterol Level 207 mg/dL (< 200) H HDL Cholesterol 46 mg/dL (40-59) Triglycerides Level 106 mg/dL (< 150) HgA1c, TSH Test 03/10/25 13:41 Hemoglobin A1c 5.7 % A1C (<5.7) Thyroid Stimulating Hormone (TSH) 2.07 uIU/mL (0.55-4.78) Urinalysis Test 03/09/25 08:10 Urine Color Yellow (Yellow) Urine Clarity Turbid (Clear) H Urine pH 5.5 (5.0-9.0) Urine Specific [place] 1.028 (1.001-1.035) Urine Protein Trace (Negative) H Urine Ketones Negative (Negative) Urine Blood Trace /uL (Negative) H Urine Nitrite Negative (Negative) Urine Bilirubin Negative (Negative) Urine Urobilinogen Normal mg/dL (Negative) Urine Leukocyte Esterase 3+ /uL (Negative) Urine RBC 8 /hpf (0 - 4) Urine Microscopic WBC 30 /HPF (0-5) H Urine Squamous Epithelial Cells Few /hpf (<5) Urine Bacteria Few /hpf (None Seen) H Urine Mucus Few (None Seen) Urine Yeast (Budding) Occasional /hpf (None Urine Glucose 1+ mg/dL (Normal) H Labs and/or images reviewed: Labs reviewed by me Assessment/Plan Assessment/Plan Acute chest pain Hypertension History of left breast cancer, status post mastectomy and radiation. Continue curent management. Continue with HTN meds Appreciate coin purse assembler's input Waiting for stress test in am Echo show: Mild LVH and mild LV diastolic dysfunction. LVEF is 65% and normal Normal valves, no effusion Plan discussed with: Patient Date of Service: Mar 11, 2025 Billing Provider: ARLEEN NGUYEN MD Common Visit Codes: [id number] INP/OBS CARE(HIGH) ARLEEN NGUYEN MD Mar 11, 2025 13:28
--- NOTE | 2025-03-11 23:08 | DVHPN2 ---
Progress Note - Dictate Date Seen: Mar 11, 2025 Medical Necessity Reason Pt with a Central, PICC or Fol: No Subjective Patient was seen and evaluated in follow up. No overnight events. Patient complains of chest pain. Patient is awaiting stress test. Telemetry reviewed. vital signs Vital Sign Date Time Temp Pulse Resp B/P (MAP) Pulse Ox O2 Delivery O2 Flow Rate FiO2 03/11/25 20:00 74 18 95 Room Air* 0 21 03/11/25 17:00 98.8 135/82 (99) 98.8 Total Intake and Output 03/10/25 03/10/25 03/11/25 15:00 23:00 07:00 Intake Total 800 ml 1200 ml Balance 800 ml 1200 ml medications Current Medications Medications Dose Ordered Sig/Nawaf Route Start Time Stop Time Status Last Admin Dose Admin Aspirin 81 mg DAILY PO 03/09/25 10:00 03/11/25 08:59 81 MG Clonidine HCl 0.1 mg Q4HP PRN PO 03/08/25 21:15 Pantoprazole Sodium 40 mg DAILY IV 03/09/25 10:00 03/11/25 08:58 40 MG Sodium Chloride 10 ml Q8HR IV 03/08/25 22:00 03/11/25 21:08 10 ML Acetaminophen/ Hydrocodone Bitart 1 tab Q4HP PRN PO 03/08/25 21:15 Ondansetron HCl 4 mg Q4HP PRN IV 03/08/25 21:15 Docusate Sodium 100 mg BIDPRN PRN PO 03/08/25 21:15 Acetaminophen 650 mg Q6HP PRN PO 03/08/25 21:15 Nitroglycerin 0.4 mg Q5MINP PRN SL 03/09/25 00:00 03/09/25 04:19 0.4 MG Morphine Sulfate 2 mg Q30M PRN IV 03/09/25 00:00 Losartan Potassium 50 mg DAILY PO 03/11/25 10:00 03/11/25 08:59 50 MG Amlodipine Besylate 5 mg DAILY PO 03/11/25 10:00 03/11/25 09:00 5 MG Atorvastatin Calcium 20 mg HS PO 03/10/25 22:00 03/11/25 21:05 20 MG objective GENERAL: Alert and oriented x 3. No acute distress. Obese. EYES: PERRL, EOMI. Anicteric. HENT: Moist mucous membranes. LUNGS: Clear to auscultation bilaterally. CARDIOVASCULAR: Regular rate and rhythm. ABDOMEN: Soft, nontender and nondistended. EXTREMITIES: No edema. NEUROLOGIC: No focal neurological deficits. SKIN: Warm, dry. laboratory and microbiology Laboratory Tests 03/10/25 13:41 03/09/25 04:43 Test 03/10/25 13:41 Range/Units Serum Glucose 153 H 74-106 mg/dL Problem List Chest pain, rule out coronary ischemia. Hypertensive urgency. Dyslipidemia, newly diagnosed. Rule out structural heart disease. History of breast cancer status post left mastectomy. Obesity. Tobacco use. Assessment/Plan Continued all current supportive medical care. Morphine and Mclean for pain management. Amlodipine, Clonidine, Losartan. Aspirin, Lipitor. Morphine for pain management. Nitro SL. Additional plan as per the hospital course. Dietary Evaluation Review Recommendations by RD: Dietary education by RD Comments: 1) Add 45g CCHO restriction to cardiac diet 2) Encourage optimal PO intake 3) Refer to outpatient RD/CDCES for prediabetes education and weight management 4) Follow-up with cardiology 5) Continue to monitor I&O, labs, and skin integrity Expected Outcomes/Goals: 1) appetite and labs to improve 2) gradual wt loss 3) f/u in 3-5 days Plan discussed with: Patient DIEGO MALONE MD Mar 11, 2025 21:33
[2025-03-12] VITALS (12 sets, daily range): BP systolic 125–164; BP diastolic 71–88; PULSE 64–77; RESP 13–18; TEMP 97.9–98.8; O2SAT 97–99
[2025-03-12 06:45] LABS: Potassium 4.1 mmol/L (3.5-5.1); Sodium 142 mmol/L (136-145)
[2025-03-12 06:46] LABS: Anion Gap 11 (5-15); Carbon Dioxide 23 mmol/L (20-31)
[2025-03-12 06:47] LABS: Calcium 9.3 mg/dL (8.7-10.4); Chloride 108 mmol/L (98-107)
[2025-03-12 06:50] LABS: Hematocrit 41.5 % (36.0-46.0); Hemoglobin 14.3 g/dL (12.2-16.2); Mean Corpuscular Hemoglobin 33.7 pg (28.0-32.0); Mean Corpuscular Volume 97.9 fL (80.0-100.0)
[2025-03-12 06:51] LABS: BUN/Creatinine Ratio 10.8 (10.0-20.0)
[2025-03-12 06:55] LABS: Blood Urea Nitrogen 7 mg/dL (9-23); Glucose 111 mg/dL (74-106)
[2025-03-12 08:55] LABS: Total Cells Counted 100.0 (100)
[2025-03-12] MEDS: REGADENOSON 0.4 MG/5 ML SYRG IV ONE ×2 (09:00)
--- NOTE | 2025-03-12 12:55 | DVHPN2 ---
Consult Progress Note Date Seen: Mar 12, 2025 Subjective Review of Systems: CVS:Normal, RESPIRATORY:Normal, NEURO:Normal Objective vital signs Vital Sign Date Time Temp Pulse Resp B/P (MAP) Pulse Ox O2 Delivery O2 Flow Rate FiO2 03/12/25 12:41 98.3 71 18 127/80 (96) 99 98.3 03/11/25 20:00 Room Air* 0 21 Total Intake and Output 03/11/25 03/11/25 03/12/25 15:00 23:00 07:00 Intake Total 600 ml Balance 600 ml medications Current Medications Medications Dose Ordered Sig/Nawaf Route Start Time Stop Time Status Last Admin Dose Admin Aspirin 81 mg DAILY PO 03/09/25 10:00 03/12/25 10:56 81 MG Clonidine HCl 0.1 mg Q4HP PRN PO 03/08/25 21:15 Pantoprazole Sodium 40 mg DAILY IV 03/09/25 10:00 03/12/25 10:56 40 MG Sodium Chloride 10 ml Q8HR IV 03/08/25 22:00 03/12/25 06:20 10 ML Acetaminophen/ Hydrocodone Bitart 1 tab Q4HP PRN PO 03/08/25 21:15 Ondansetron HCl 4 mg Q4HP PRN IV 03/08/25 21:15 Docusate Sodium 100 mg BIDPRN PRN PO 03/08/25 21:15 Acetaminophen 650 mg Q6HP PRN PO 03/08/25 21:15 Nitroglycerin 0.4 mg Q5MINP PRN SL 03/09/25 00:00 03/09/25 04:19 0.4 MG Morphine Sulfate 2 mg Q30M PRN IV 03/09/25 00:00 Losartan Potassium 50 mg DAILY PO 03/11/25 10:00 03/12/25 10:57 50 MG Amlodipine Besylate 5 mg DAILY PO 03/11/25 10:00 03/12/25 10:57 5 MG Atorvastatin Calcium 20 mg HS PO 03/10/25 22:00 03/11/25 21:05 20 MG Examination: LUNGS:Normal, CVS:Normal, NEURO:Normal laboratory and microbiology Laboratory Tests 03/12/25 05:50 Test 03/12/25 05:50 Range/Units Serum Glucose 111 H 74-106 mg/dL Problem List/Assessment/Plan Problem List/Assessment/Plan Hypertensive urgency Chest pain, rule out coronary ischemia Dyslipidemia, newly diagnosed Rule out structural heart disease History of breast cancer status post left mastectomy Tobacco use Obesity Plan/Recommendation (Dr. Pride) * Transthoracic echocardiogram revealed a LVEF of 65% * Nuclear stress test: inferior/apical ischemic defect as reviewed by Dr. Pride * Aggressive blood pressure control as tolerated * Single-antiplatelet therapy and lipid-lowering agent Scheduled for a cardiac catheterization with coronary angiogram with Dr. Pride on 03/12/2025. Risks and benefits of the procedure were discussed with the patient who agrees to proceed with intervention. All questions answered. Thank you for allowing us to care for this patient. Please call with any questions or concerns. This medical document was created using an electronic medical record system with voice recognition software and computerized dictation system. Although this document has been carefully reviewed, there might still be some phonetic and typographical errors. Occasional wrong-word or ``sound-alike substitutions may have occurred due to the inherent limitations of voice recognition software. These areas are purely typographical due to imperfections of the software programs and do not reflect any compromise in the patient's medical care. Please read the chart carefully and recognize, using context, where these substitutions have occurred. Plan discussed with: Patient, Other Dietary Evaluation Review Recommendations by RD: Dietary education by RD Comments: 1) Add 45g CCHO restriction to cardiac diet 2) Encourage optimal PO intake 3) Refer to outpatient RD/CD[facility] for prediabetes education and weight management 4) Follow-up with cardiology 5) Continue to monitor I&O, labs, and skin integrity Expected Outcomes/Goals: 1) appetite and labs to improve 2) gradual wt loss 3) f/u in 3-5 days Date of Service: Mar 12, 2025 Billing Provider: TERRENCE FRASER Cardiology Common Codes: [id number] [facility](High TERRENCE FRASER Mar 12, 2025 12:55
--- NOTE | 2025-03-12 14:42 | DVHPN2 ---
Subjective Patient reports having persistent substernal chest pain. Reviewed: Care Plan, H&P, Labs, Medications, Previous Orders, Radiology Changes from previous H/P or p: No Changes General: Per HPI Eyes: No Pain, No Vision change, No Conjunctivae inflammation, No Eyelid inflammation, No Other, No Redness ENT: No Ear pain, No Ear discharge, No Nose pain, No Nose discharge, No Nose congestion, No Mouth pain, No Mouth swelling, No Throat pain, No Throat swelling, No Other Cardiovascular: Chest Pain; No Palpitations, No Orthopnea, No Paroxysmal Noc. Dyspnea, No Edema, No Lt Headedness, No Other Respiratory: No Cough, No Dry, No Shortness of breath, No SOB with excertion, No Wheezing, No Hemoptysis, No Pleuritic Pain, No Sputum, No Other Gastrointestinal: No Nausea, No Vomiting, No Abdominal Pain, No Diarrhea, No Constipation, No Melena, No Hematochezia, No Other Genitourinary: No Dysuria, No Frequency, No Incontinence, No Hematuria, No Retention, No Other Musculoskeletal: No other, No neck pain, No shoulder pain, No arm pain, No back pain, No hand pain, No leg pain, No foot pain Skin: No Rash, No Lesions, No Jaundice, No Bruising, No Other Objective Vitals Vital Signs Date Time Temp Pulse Resp B/P (MAP) Pulse Ox O2 Delivery O2 Flow Rate FiO2 03/12/25 13:46 164/80 03/12/25 12:53 77 03/12/25 12:41 98.3 18 99 98.3 03/11/25 20:00 Room Air* 0 21 Intake/Output Intake and Output 03/12/25 07:00 Intake Total 600 ml Balance 600 ml Intake Oral 600 ml # Voids 4 General Appearance: Alert, Oriented X3, Cooperative, No acute distress HEENT: Atraumatic, PERRLA, EOMI, Mucous membr. moist/pink Neck: Supple Lungs: Clear to auscultation, Normal air movement Cardiovascular: Regular rate, Normal S1, Normal S2, No murmurs, Gallops, Rubs Abdomen: Normal bowel sounds, Soft, No tenderness Neuro: Cranial nerves 3-12 NL Psych/Mental Status: Mental status NL Medications Current Medications Medications Dose Ordered Sig/Nawaf Route Start Time Stop Time Status Last Admin Dose Admin Aspirin 81 mg DAILY PO 03/09/25 10:00 03/12/25 10:56 81 MG Clonidine HCl 0.1 mg Q4HP PRN PO 03/08/25 21:15 03/12/25 13:46 0.1 MG Pantoprazole Sodium 40 mg DAILY IV 03/09/25 10:00 03/12/25 10:56 40 MG Sodium Chloride 10 ml Q8HR IV 03/08/25 22:00 03/12/25 13:53 10 ML Acetaminophen/ Hydrocodone Bitart 1 tab Q4HP PRN PO 03/08/25 21:15 Ondansetron HCl 4 mg Q4HP PRN IV 03/08/25 21:15 Docusate Sodium 100 mg BIDPRN PRN PO 03/08/25 21:15 Acetaminophen 650 mg Q6HP PRN PO 03/08/25 21:15 Nitroglycerin 0.4 mg Q5MINP PRN SL 03/09/25 00:00 03/09/25 04:19 0.4 MG Morphine Sulfate 2 mg Q30M PRN IV 03/09/25 00:00 Losartan Potassium 50 mg DAILY PO 03/11/25 10:00 03/12/25 10:57 50 MG Amlodipine Besylate 5 mg DAILY PO 03/11/25 10:00 03/12/25 10:57 5 MG Atorvastatin Calcium 40 mg HS PO 03/12/25 22:00 Laboratory Results Laboratory Tests 03/12/25 05:50 Chemistry Test 03/12/25 05:50 Calcium Level 9.3 mg/dL (8.7-10.4) Urinalysis Test 03/09/25 08:10 Urine Color Yellow (Yellow) Urine Clarity Turbid (Clear) H Urine pH 5.5 (5.0-9.0) Urine Specific [place] 1.028 (1.001-1.035) Urine Protein Trace (Negative) H Urine Ketones Negative (Negative) Urine Blood Trace /uL (Negative) H Urine Nitrite Negative (Negative) Urine Bilirubin Negative (Negative) Urine Urobilinogen Normal mg/dL (Negative) Urine Leukocyte Esterase 3+ /uL (Negative) Urine RBC 8 /hpf (0 - 4) Urine Microscopic WBC 30 /HPF (0-5) H Urine Squamous Epithelial Cells Few /hpf (<5) Urine Bacteria Few /hpf (None Seen) H Urine Mucus Few (None Seen) Urine Yeast (Budding) Occasional /hpf (None Urine Glucose 1+ mg/dL (Normal) H Labs and/or images reviewed: Labs reviewed by me, Image(s) reviewed by me Assessment/Plan Assessment/Plan Impression: -accelerated hypertension -acute coronary syndrome -obesity -dyslipidemia -UTI Plan: -stress test positive. Plans for left heart catheterization today. -ACS protocol -start IV Rocephin -antihypertensives -repeat labs in a.m. -further course of care per Cardiology findings Total time spent with patient discussing and formulating plan of care: 35 minutes. This medical document was created using an electronic medical record system with [employer] dictation system. Although this document has been carefully reviewed, there may still be some phonetic and typographical errors. These areas are purely typographical due to imperfections of the software programs, and do not reflect any compromise in the patient's medical care. Plan discussed with: Patient, Other (RN) Date of Service: Mar 12, 2025 Billing Provider: SNEHAL KRISHNA NP Common Visit Codes: [id number] INP/OBS CARE(HIGH) SNEHAL KRISHNA NP Mar 12, 2025 14:42
[2025-03-12 15:34] LABS: INR 1.02 (0.9-1.15); Partial Thromboplastin Time 23.8 SEC (24.5-34.5); Prothrombin Time 10.8 sec (9.3-11.8)
[2025-03-12] MEDS ORDERED: fentaNYL CITRATE 100 MCG/2 ML VL ONE (21:07)
[2025-03-12] MEDS ORDERED: MIDAZOLAM HCL 2MG/2ML 2ml VIAL (1mg/ml) ONE (21:08)
[2025-03-12] MEDS ORDERED: HEPARIN IN NS 1000Units/500mL 1,500 ML ONE (21:08)
[2025-03-12] MEDS ORDERED: LIDOCAINE 2%HCL (LOCAL ANESTH.) INJ 20ML MDV ONE (21:08)
[2025-03-12] MEDS ORDERED: IODIXANOL 320MG/ML 100ML BTL IV ONE (21:08)
[2025-03-12] MEDS ORDERED: VERAPAMIL 2.5MG/ML INJ 2ML VIAL IV ONE (21:11)
[2025-03-12] MEDS ORDERED: SODIUM CHL 0.9% 0 ML ONE (21:11)
[2025-03-12] MEDS ORDERED: ANGIOMAX 250 MG VIAL IV ONE (21:11)
[2025-03-12] MEDS ORDERED: HEPARIN SODIUM (PORCINE) 5000 UNITS/ML 1ML VIAL ONE (21:11)
--- NOTE | 2025-03-12 21:44 | DVHOP ---
DATE OF SURGERY: 03/12/2025 TECHNIQUE PERFORMED: * Ultrasound of the right radial artery. * Management of conscious sedation. * Ultrasound-guided insertion of a 6-E[place]ian arterial line from the right radial artery. * Left heart cath. * Left ventriculogram. * [place] selective left and right coronary artery angiography. ASSISTANTS: Assisted by Felipe King Bryan, Josue and Marlen. INDICATIONS: As follows: * Angina type of the symptom. * This patient has underlying hypertension, acute coronary syndrome, obesity, dyslipidemia, and the patient's stress test was done, which turned out to be positive. DESCRIPTION OF PROCEDURE: Risks and benefits all have been explained to the patient, understood and accepted very well. The patient has been brought to the clinical laboratory aide. The right radial area thoroughly cleaned with soap and Betadine. Ultrasound was done. A 6-E[place]ian arterial line was placed. Subsequently, the patient was given a cocktail of 100 mcg of nitroglycerin, 2.5 mg of verapamil, 2000 units of heparin was given. TIG catheter 5-Estonian 4.0 was passed and left coronary angio was done. With the help of similar catheter, the right coronary angiography was done. With the help of pigtail catheter, complete left heart cath had been done. The left ventriculogram was done in the right anterior oblique view with a total of 10 mL of dye. Post-LV gram, left ventricular angiography had been performed with the help of pull-through technique. Aortic pressure was also performed. J-wire was passed. Pigtail catheter also had been discontinued. Procedure completed. IMPRESSION: * Normal left main. * Left anterior descending artery is a very large artery, normal. * The circumflex obtuse marginal artery is very tortuous, but no stenosis. * Right coronary artery is a large dominant artery, normal. * Ejection fraction of 80% and is hyperdynamic and normal. CONCLUSION: * No evidence of any occlusive coronary artery disease. * Ejection fraction is very high. * Hyperdynamic left ventricle in the range of 80%. PLAN OF ACTION: Advised for conservative medical treatment. Racheal Pride MD MP/CORBIN/TIFFANY TID: [id number] RECEIPT: [id number]
[2025-03-12] MEDS: ACETAMINOPHEN 325 MG TAB PO PRN (22:57)
[2025-03-12] MEDS: ATORVASTATIN 20 MG TAB PO SCH (23:17)
--- NOTE | 2025-03-13 00:03 | DVHPN2 ---
Consult Progress Note Date Seen: Mar 12, 2025 Subjective Other Systems: Patient was seen and evaluated in follow up. No overnight events. Transthoracic echocardiogram revealed a LVEF of 65%. The patient is scheduled for a cardiac catheterization with coronary angiogram tomorrow. Telemetry reviewed. Objective vital signs Vital Sign Date Time Temp Pulse Resp B/P (MAP) Pulse Ox O2 Delivery O2 Flow Rate FiO2 03/12/25 21:25 68 14 142/73 (96) 98 03/12/25 17:01 97.9 97.9 03/12/25 08:00 Room Air* 0 21 Total Intake and Output 03/12/25 03/12/25 03/13/25 15:00 23:00 07:00 Intake Total 50 ml Balance 50 ml medications Current Medications Medications Dose Ordered Sig/Nawaf Route Start Time Stop Time Status Last Admin Dose Admin Aspirin 81 mg DAILY PO 03/09/25 10:00 03/12/25 10:56 81 MG Clonidine HCl 0.1 mg Q4HP PRN PO 03/08/25 21:15 03/12/25 13:46 0.1 MG Pantoprazole Sodium 40 mg DAILY IV 03/09/25 10:00 03/12/25 10:56 40 MG Sodium Chloride 10 ml Q8HR IV 03/08/25 22:00 03/12/25 22:00 10 ML Acetaminophen/ Hydrocodone Bitart 1 tab Q4HP PRN PO 03/08/25 21:15 Ondansetron HCl 4 mg Q4HP PRN IV 03/08/25 21:15 Docusate Sodium 100 mg BIDPRN PRN PO 03/08/25 21:15 Acetaminophen 650 mg Q6HP PRN PO 03/08/25 21:15 03/12/25 22:57 650 MG Nitroglycerin 0.4 mg Q5MINP PRN SL 03/09/25 00:00 03/09/25 04:19 0.4 MG Morphine Sulfate 2 mg Q30M PRN IV 03/09/25 00:00 Losartan Potassium 50 mg DAILY PO 03/11/25 10:00 03/12/25 10:57 50 MG Amlodipine Besylate 5 mg DAILY PO 03/11/25 10:00 03/12/25 10:57 5 MG Atorvastatin Calcium 40 mg HS PO 03/12/25 22:00 03/12/25 23:17 40 MG Ceftriaxone Sodium 50 ml @ 100 mls/hr DAILY@09 IV 03/12/25 14:45 03/12/25 14:45 100 MLS/HR Examination: GENERAL:Normal, HEENT:Normal, NECK:Normal, LUNGS:Normal, CVS:Normal, ABDOMEN:Normal, MSK:Normal, SKIN:Normal, NEURO:Normal laboratory and microbiology Laboratory Tests 03/12/25 05:50 Test 03/12/25 05:50 Range/Units Serum Glucose 111 H 74-106 mg/dL Problem List/Assessment/Plan Problem List/Assessment/Plan Hypertensive urgency. Chest pain, rule out coronary ischemia. Dyslipidemia, newly diagnosed. Rule out structural heart disease. History of breast cancer status post left mastectomy. Tobacco use. Obesity. Plan/Recommendation Continued all current supportive medical care. Patient has been seen by Riya Hyde NP on my behalf. We have discussed the plan with the patient. Transthoracic echocardiogram revealed a LVEF of 65% Nuclear stress test: inferior/apical ischemic defect as reviewed by Dr. Malone Aggressive blood pressure control as tolerated Single-antiplatelet therapy and lipid-lowering agent Patient is scheduled for a cardiac catheterization with coronary angiogram 03/12/2025. Risks and benefits of the procedure were discussed with the patient who agrees to proceed with intervention. All questions answered. Additional plan as per the hospital course. Plan discussed with: Patient Dietary Evaluation Review Recommendations by RD: Dietary education by RD Comments: 1) Add 45g CCHO restriction to cardiac diet 2) Encourage optimal PO intake 3) Refer to outpatient RD/CDCES for prediabetes education and weight management 4) Follow-up with cardiology 5) Continue to monitor I&O, labs, and skin integrity Expected Outcomes/Goals: 1) appetite and labs to improve 2) gradual wt loss 3) f/u in 3-5 days Date of Service: Mar 12, 2025 Billing Provider: DIEGO MALONE MD Cardiology Common Codes: [id number] HOSP CARE(High DIEGO MALONE MD Mar 13, 2025 00:03
[2025-03-13] MEDS: HYDROcodone-ACET 5/325MG TAB PO PRN (00:21)
[2025-03-13 01:00] VITALS: BP 125/73; PULSE 61; RESP 18; TEMP 98.2; O2SAT 97
[2025-03-13 05:00] VITALS: BP 131/80; PULSE 59; RESP 18; TEMP 98.6; O2SAT 93
--- NOTE | 2025-03-13 06:42 | DVHSR ---
APPROVED REPORT Exam: Nuclear Stress Test Indication: Chest pain BMI: 0 Stress Test Details Stress Test: Pharmacologic stress testing performed using 0.4 mg of regadenoson per 5 mL given IV over 10 seconds. HR Resting HR: 68 bpm Max Heart Rate (APMHR): 161.505244 bpm Max HR Achieved: 117 bpm Target HR (85% APMHR): 136.209763 bpm % of APMHR: 72.67 Recovery HR: 91 bpm BP Resting BP: 144/82 mmHg Recovery BP: 140/71 mmHg ECG Resting ECG: Sinus Rhythm Clinical Reason for Termination: Completed protocol Nurse Comments Recieved pt. from [facility]. A/Ox4 on RA. 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 PIV flushes well. Reviewed POC. Pt. verbalized understanding of procedure including risks and side effects, agrees for stress testing. Lexiscan stress test performed per protocol. [employer] tech administered Cardiolite. Pt. tolerated well. Pt. stable, no change on exam. VS returned to baseline. Transferred to [facility] via wheelchair w/ tech. Stress ECG Conclusion lvef 73% normal perfusion scan NM EXAM: Myocardial Perfusion REST/STRESS Imaging Protocol: Rest Tc-99m/Stress Tc-99m 1 day Resting Data Rest SPECT myocardial perfusion imaging was performed in supine position 60 minutes following the intravenous injection of 10.1 mCi of Tc-99m Sestamibi. Time of rest injection: 07:38 Date: 03/12/2025 Time of rest imagin:38 Date: 03/12/2025 Administration Route: IV Administration Site: Right Hand Pharmacologic Stress Pharmacologic stress test was performed by injecting Regadenoson 0.4 mg IV push followed by the intravenous injection of 31.1 mCi of Tc-99m Sestamibi. Time of stress injection: 09:02 Date: 03/12/2025 Time of stress imagin:02 Date: 03/12/2025 Administration Route: IV Administration Site: Right Hand Gated Stress SPECT was performed 60 minutes after stress injection. The images were gated to evaluate regional wall motion and calculate left ventricular ejection fraction. Stress only was performed in the Supine position. Nuclear Conclusion Nuclear Findings: negative for ischemia lvef 73% normal perfusion scan
[2025-03-13 07:30] LABS: Hematocrit 37.6 % (36.0-46.0); Hemoglobin 13.0 g/dL (12.2-16.2); Mean Corpuscular Hemoglobin 33.5 pg (28.0-32.0); Mean Corpuscular Volume 96.7 fL (80.0-100.0); Nucleated Red Blood Cells % 0.2 %
[2025-03-13 07:38] LABS: Anion Gap 9 (5-15); Carbon Dioxide 25 mmol/L (20-31); Potassium 3.6 mmol/L (3.5-5.1); Sodium 142 mmol/L (136-145)
[2025-03-13 07:40] LABS: Calcium 8.8 mg/dL (8.7-10.4); Chloride 108 mmol/L (98-107)
[2025-03-13 07:45] LABS: BUN/Creatinine Ratio 19.4 (10.0-20.0); Blood Urea Nitrogen 12 mg/dL (9-23); Glucose 97 mg/dL (74-106)
[2025-03-13 08:00] VITALS: PULSE 66; RESP 18
[2025-03-13 08:47] VITALS: BP 166/94; PULSE 61; RESP 17; TEMP 97.6; O2SAT 99
--- NOTE | 2025-03-13 09:22 | DVHPN2 ---
Consult Progress Note Date Seen: Mar 13, 2025 Subjective Review of Systems: CVS:Normal, RESPIRATORY:Normal, NEURO:Normal Objective vital signs Vital Sign Date Time Temp Pulse Resp B/P (MAP) Pulse Ox O2 Delivery O2 Flow Rate FiO2 03/13/25 08:47 97.6 61 17 166/94 (118) 99 97.6 03/12/25 20:00 Room Air* 0 21 Total Intake and Output 03/12/25 03/12/25 03/13/25 15:00 23:00 07:00 Intake Total 50 ml Balance 50 ml medications Current Medications Medications Dose Ordered Sig/Nawaf Route Start Time Stop Time Status Last Admin Dose Admin Aspirin 81 mg DAILY PO 03/09/25 10:00 03/13/25 08:44 81 MG Clonidine HCl 0.1 mg Q4HP PRN PO 03/08/25 21:15 03/12/25 13:46 0.1 MG Pantoprazole Sodium 40 mg DAILY IV 03/09/25 10:00 03/13/25 08:44 40 MG Sodium Chloride 10 ml Q8HR IV 03/08/25 22:00 03/12/25 22:00 10 ML Acetaminophen/ Hydrocodone Bitart 1 tab Q4HP PRN PO 03/08/25 21:15 03/13/25 00:21 1 TAB Ondansetron HCl 4 mg Q4HP PRN IV 03/08/25 21:15 Docusate Sodium 100 mg BIDPRN PRN PO 03/08/25 21:15 Acetaminophen 650 mg Q6HP PRN PO 03/08/25 21:15 03/13/25 08:47 650 MG Nitroglycerin 0.4 mg Q5MINP PRN SL 03/09/25 00:00 03/09/25 04:19 0.4 MG Morphine Sulfate 2 mg Q30M PRN IV 03/09/25 00:00 Losartan Potassium 50 mg DAILY PO 03/11/25 10:00 03/13/25 08:43 50 MG Amlodipine Besylate 5 mg DAILY PO 03/11/25 10:00 03/13/25 08:43 5 MG Atorvastatin Calcium 40 mg HS PO 03/12/25 22:00 03/12/25 23:17 40 MG Ceftriaxone Sodium 50 ml @ 100 mls/hr DAILY@09 IV 03/12/25 14:45 03/13/25 08:45 100 MLS/HR Examination: LUNGS:Normal, CVS:Normal, NEURO:Normal laboratory and microbiology Laboratory Tests 03/13/25 05:45 Test 03/13/25 05:45 Range/Units Serum Glucose 97 74-106 mg/dL Problem List/Assessment/Plan Problem List/Assessment/Plan Hypertensive urgency Chest pain, coronary artery disease ruled out Dyslipidemia, newly diagnosed History of breast cancer status post left mastectomy Tobacco use Obesity Plan/Recommendation (Dr. Pride) * Transthoracic echocardiogram revealed a LVEF of 65% * Cardiac catheterization and coronary angiogram revealed no evidence of any occlusive coronary artery disease (see full dictated report) * Continue aggressive blood pressure control and lipid-lowering agent There is no further cardiac workup indicated at this time. Signing off. Kindly call with any questions or concerns. Thank you for allowing us to care for this patient. This medical document was created using an electronic medical record system with voice recognition software and computerized dictation system. Although this document has been carefully reviewed, there might still be some phonetic and typographical errors. Occasional wrong-word or ``sound-alike substitutions may have occurred due to the inherent limitations of voice recognition software. These areas are purely typographical due to imperfections of the software programs and do not reflect any compromise in the patient's medical care. Please read the chart carefully and recognize, using context, where these substitutions have occurred. Plan discussed with: Patient, Other Dietary Evaluation Review Recommendations by RD: Dietary education by RD Comments: 1) Add 45g CCHO restriction to cardiac diet 2) Encourage optimal PO intake 3) Refer to outpatient RD/CD[facility] for prediabetes education and weight management 4) Follow-up with cardiology 5) Continue to monitor I&O, labs, and skin integrity Expected Outcomes/Goals: 1) appetite and labs to improve 2) gradual wt loss 3) f/u in 3-5 days Date of Service: Mar 13, 2025 Billing Provider: TERRENCE FRASER Cardiology Common Codes: [id number] INP/OBS CARE(Mod) TERRENCE FRASER Mar 13, 2025 09:22
[2025-03-13 12:41] VITALS: BP 159/92; PULSE 74; RESP 16; TEMP 97.3; O2SAT 96
[2025-03-13] MEDS ORDERED: AMLO1TAB23 PO (14:43)
[2025-03-13] MEDS ORDERED: LOSA-535 PO (14:43)
[2025-03-13] MEDS ORDERED: SPIR25TA8 PO (14:43)
[2025-03-13 15:06] VITALS: BP 128/72; PULSE 70; RESP 16; TEMP 98.7; O2SAT 97
--- NOTE | 2025-03-13 15:18 | DVHDS2 ---
Discharge Summary Date of Admission Mar 08, 2025 at 23:47 Date of Discharge: Mar 13, 2025 Admitting Diagnosis Accelerated hypertension Labs/Diagnostic Data: Laboratory Results Test 03/13/25 05:45 03/12/25 14:53 03/12/25 05:50 03/10/25 13:41 White Blood Count 5.9 10^3/uL (4.4-10.8) Red Blood Count 3.89 10^6/uL (4.0-5.20) Hemoglobin 13.0 g/dL (12.2-16.2) Hematocrit 37.6 % (36.0-46.0) Mean Corpuscular Volume 96.7 fL (80.0-100.0) Mean Corpuscular Hemoglobin 33.5 pg (28.0-32.0) Mean Corpuscular Hemoglobin Concent 34.6 g/dL (32.0-36.0) Red Cell Distribution Width 12.2 % (11.8-14.3) Platelet Count 244 10^3/uL (140-450) Mean Platelet Volume 8.0 fL (6.9-10.8) Neutrophils (%) (Auto) 58.6 % (37.0-80.0) Lymphocytes (%) (Auto) 30.5 % (10.0-50.0) Monocytes (%) (Auto) 9.7 % (0.0-12.0) Eosinophils (%) (Auto) 0.8 % (0.0-7.0) Basophils (%) (Auto) 0.4 % (0.0-2.0) Neutrophils # (Auto) 3.5 10 ^3/uL (1.6-8.6) Lymphocytes # (Auto) 1.8 10 ^3/uL (0.4-5.4) Monocytes # (Auto) 0.6 10 ^3/uL (0-1.3) Eosinophils # (Auto) 0 10 ^3/uL (0-0.8) Basophils # (Auto) 0 10 ^3/uL (0-0.2) Nucleated Red Blood Cells 0.2 % Sodium Level 142 mmol/L (136-145) Potassium Level 3.6 mmol/L (3.5-5.1) Chloride Level 108 mmol/L (98-107) Carbon Dioxide Level 25 mmol/L (20-31) Anion Gap 9 (5-15) Blood Urea Nitrogen 12 mg/dL (9-23) Creatinine 0.62 mg/dL (0.550-1.02) Glomerular Filtration Rate Calc 103 mL/min (>90) BUN/Creatinine Ratio 19.4 (10.0-20.0) Serum Glucose 97 mg/dL (74-106) Calcium Level 8.8 mg/dL (8.7-10.4) Prothrombin Time 10.8 sec (9.3-11.8) Prothrombin Time INR 1.02 (0.9-1.15) Activated Partial Thromboplast Time 23.8 SEC (24.5-34.5) Differential Total Cells Counted 100.0 (100) Neutrophils % (Manual) 57 (37.0-80.0) Band Neutrophils % (Manual) 1 Lymphocytes % (Manual) 29 (10.0-50.0) Monocytes % (Manual) 12 (0-12) Eosinophils % (Manual) 1 (0-7) Basophils % (Manual) 0 (0.0-2.0) Metamyelocytes % (manual) 0 Myelocytes % (Manual) 0 Promyelocytes % (Manual) 0 Blast Cells % (Manual) 0 Reactive Lymphocytes 0 Platelet Estimate Adequate Hemoglobin A1c 5.7 % A1C (<5.7) Magnesium Level 1.6 mg/dL (1.6-2.6) Triglycerides Level 106 mg/dL (< 150) Cholesterol Level 207 mg/dL (< 200) LDL Cholesterol 144 mg/dL (< 100) HDL Cholesterol 46 mg/dL (40-59) Thyroid Stimulating Hormone (TSH) 2.07 uIU/mL (0.55-4.78) Test 03/09/25 08:10 03/09/25 04:43 03/08/25 18:54 Urine Color Yellow (Yellow) Urine Clarity Turbid (Clear) Urine pH 5.5 (5.0-9.0) Urine Specific [place] 1.028 (1.001-1.035) Urine Protein Trace (Negative) Urine Ketones Negative (Negative) Urine Blood Trace /uL (Negative) Urine Nitrite Negative (Negative) Urine Bilirubin Negative (Negative) Urine Urobilinogen Normal mg/dL (Negative) Urine Leukocyte Esterase 3+ /uL (Negative) Urine RBC 8 /hpf (0 - 4) Urine Microscopic WBC 30 /HPF (0-5) Urine Squamous Epithelial Cells Few /hpf (<5) Urine Bacteria Few /hpf (None Seen) Urine Mucus Few (None Seen) Urine Yeast (Budding) Occasional /hpf (None Urine Glucose 1+ mg/dL (Normal) Total Bilirubin 0.6 mg/dL (0.2-1.0) Aspartate Amino Transferase (AST) 23 U/L (13-40) Alanine Aminotransferase (ALT) 23 U/L (7-40) Alkaline Phosphatase 77 U/L (46-116) Total Protein 7.3 g/dL (5.7-8.2) Albumin 4.4 g/dL (3.2-4.8) Troponin I High Sensitivity 3 ng/L (</=34) Other Laboratory Tests 03/13/25 05:45 Brief Hx & Hospital Course: History of Present Illness The patient is a 59-year-old female with past medical history of hypertension who presented to [facility] ED with complaint of chest pain. Patient reports she has been experiencing substernal chest pain, pressure in nature, rating 8/10 numeric scale, getting worse that prompted this visit. Patient was seen and evaluated in the ED, laboratory data shows WBC 7.5, platelets 253, sodium 138, potassium 3.9, BUN 14, creatinine 0.83, glucose 113, calcium 9.4, troponin 4, blood pressure 160/88, heart rate 82, temperature 97.9 F, O2 saturation 98% on room air. Chest x-ray show no acute cardiopulmonary disease. Patient was given aspirin 325 mg by mouth x1, please see medication orders section in the computer. On my assessment, patient denied chest pain at this moment, no headache, dizziness, diaphoresis, shortness of breaths, no diarrhea, nausea, vomiting, fever, no chills. Patient was admitted for further evaluation and medical management. Course of hospitalization: Patient had cardiology consultation. Patient had stress test which was positive for ischemic changes. Blood pressure has been better controlled while in the hospital. Patient underwent left heart catheterization yesterday afternoon with no indication of CAD as well as patient having normal left ventricular function. Patient will have her home antihypertensives increased giving her persistent uncontrolled blood pressure. She is instructed to follow up with her PCP in 1-2 weeks. All questions answered. Physical examination General: Alert and Oriented x3. No acute distress. Well-nourished. Obese Eyes: EOMI. Anicteric. HENT: Moist mucous membranes. Lungs: Clear to auscultation bilaterally. No accessory muscle use. Cardiovascular: Regular rate and rhythm. No murmur. No JVD. Abdomen: Soft, non-tender and non-distended. No palpable masses. Extremities: No edema. Non-tender. Skin: No rashes or lesions. Warm. Neurologic: No focal neurological deficits. CN II-XII grossly intact, but not individually tested. Psychiatric: Cooperative. Appropriate mood and affect. Total time spent with patient discussing and formulating plan of care: 35 minutes. This medical document was created using an electronic medical record system with [employer] system. Although this document has been carefully reviewed, there may still be some phonetic and typographical errors. These areas are purely typographical due to imperfections of the software programs, and do not reflect any compromise in the patient's medical care. Consults/Reason for consult Cardiology: Chest pain Operations or Procedures 04/08/2025: Left heart catheterization Condition at Discharge: Fair Final Diagnosis/Problems List Hypertensive Crisis Discharge Disposition: Home Discharge Instruct/Medications Diet: Cardiac 2g Na,low cholest Activity: No Restrictions, As Tolerated Follow Up/Referral: PCP in 1 week Medications: Losartan 100mg po bid Amlodipine 10mg po daily Spirinolactone 25mg po daily Scheduled Amlodipine Besylate (Amlodipine Besylate), 5 MG PO DAILY, (Reported) Amlodipine Besylate (Amlodipine Besylate), 1 TAB PO DAILY Hydrochlorothiazide (Hydrochlorothiazide), 25 MG PO DAILY, (Reported) Ibuprofen (Ibuprofen), 1 TAB PO TID Losartan Potassium (Losartan Potassium), 100 MG PO DAILY, (Reported) Losartan Potassium (Losartan Potassium), 1 TAB PO BID Spironolactone (Spironolactone), 1 TAB PO DAILY 36 Discharge Statement: "Patient was advised to return to the ER or call 911 if any headaches, dizziness, shortness of breath, chest pain, abdominal pain, bleeding, fevers, or worsening of medical condition. Patient was counseled about treatment plan, medications, possible side effects, patientverbalized understanding. All questions were answered to the best of my ability. This discharge took greater then 30 minutes in planning, reviewing documentation, counseling the patient, and discussing with other team members." ASSESSMENT ASSESSMENT Assessment Hypertensive Crisis Date of Service: Mar 13, 2025 Billing Provider: SNEHAL KRISHNA NP Common Visit Codes: [id number] DISCH DAY >30min SNEHAL KRISHNA NP Mar 13, 2025 15:18
--- NOTE | 2025-03-13 23:38 | DVHPN2 ---
Consult Progress Note Date Seen: Mar 13, 2025 Subjective Review of Systems: NEURO:Normal Other Systems: Patient was seen and evaluated in follow up. Patient underwent cardiac catheterization and coronary angiogram revealed no evidence of any occlusive coronary artery disease (see full dictated report). Patient is cardiac stable for discharge. Telemetry reviewed. Objective vital signs Vital Sign Date Time Temp Pulse Resp B/P (MAP) Pulse Ox O2 Delivery O2 Flow Rate FiO2 03/13/25 15:06 98.7 70 16 97 03/13/25 13:20 128/72 03/13/25 08:00 Room Air* 0 21 Total Intake and Output 03/12/25 03/12/25 03/13/25 15:00 23:00 07:00 Intake Total 50 ml Balance 50 ml medications Current Medications Medications Dose Ordered Sig/Nawaf Route Start Time Stop Time Status Last Admin Dose Admin Aspirin 81 mg DAILY PO 03/09/25 10:00 03/13/25 08:44 81 MG Clonidine HCl 0.1 mg Q4HP PRN PO 03/08/25 21:15 03/13/25 12:20 0.1 MG Pantoprazole Sodium 40 mg DAILY IV 03/09/25 10:00 03/13/25 08:44 40 MG Sodium Chloride 10 ml Q8HR IV 03/08/25 22:00 03/13/25 14:04 10 ML Acetaminophen/ Hydrocodone Bitart 1 tab Q4HP PRN PO 03/08/25 21:15 03/13/25 00:21 1 TAB Ondansetron HCl 4 mg Q4HP PRN IV 03/08/25 21:15 Docusate Sodium 100 mg BIDPRN PRN PO 03/08/25 21:15 Acetaminophen 650 mg Q6HP PRN PO 03/08/25 21:15 03/13/25 08:47 650 MG Nitroglycerin 0.4 mg Q5MINP PRN SL 03/09/25 00:00 03/09/25 04:19 0.4 MG Morphine Sulfate 2 mg Q30M PRN IV 03/09/25 00:00 Losartan Potassium 50 mg DAILY PO 03/11/25 10:00 03/13/25 08:43 50 MG Amlodipine Besylate 5 mg DAILY PO 03/11/25 10:00 03/13/25 08:43 5 MG Atorvastatin Calcium 40 mg HS PO 03/12/25 22:00 03/12/25 23:17 40 MG Ceftriaxone Sodium 50 ml @ 100 mls/hr DAILY@09 IV 03/12/25 14:45 03/13/25 08:45 100 MLS/HR Examination: GENERAL:Normal, HEENT:Normal, NECK:Normal, LUNGS:Normal, CVS:Normal, ABDOMEN:Normal, MSK:Normal, NEURO:Normal laboratory and microbiology Laboratory Tests 03/13/25 05:45 Test 03/13/25 05:45 Range/Units Serum Glucose 97 74-106 mg/dL Problem List/Assessment/Plan Problem List/Assessment/Plan Problem List: Hypertensive urgency. Chest pain, coronary artery disease ruled out. Dyslipidemia, newly diagnosed. History of breast cancer status post left mastectomy. Tobacco use. Obesity. Plan/Recommendation Continued all current supportive medical care. Patient has been seen by Riya Hyde NP on my behalf. We have discussed the plan with the patient. Transthoracic echocardiogram revealed a LVEF of 65%. Cardiac catheterization and coronary angiogram revealed no evidence of any occlusive coronary artery disease (see full dictated report). Continue aggressive blood pressure control and lipid-lowering agent. Additional plan as per the hospital course. Plan discussed with: Patient Dietary Evaluation Review Recommendations by RD: Dietary education by RD Comments: 1) Add 45g CCHO restriction to cardiac diet 2) Encourage optimal PO intake 3) Refer to outpatient RD/[facility] for prediabetes education and weight management 4) Follow-up with cardiology 5) Continue to monitor I&O, labs, and skin integrity Expected Outcomes/Goals: 1) appetite and labs to improve 2) gradual wt loss 3) f/u in 3-5 days Date of Service: Mar 13, 2025 Billing Provider: DIEGO MALONE MD Cardiology Common Codes: [id number] [facility](High DIEGO MALONE MD Mar 13, 2025 15:29
== END 2025-03-13 15:50 | disposition home or self-care (01) | DRG 191 ==
LOC: ER 17:54 → OVERFLOW 23:47 → TELE-WESTW 03-09 02:32
PROVIDERS: ADMIT Nurse Practitioner Acute Care; ATTEND Nurse Practitioner Acute Care
PROC: 03HY32Z Insertion of Monitoring Device into Upper Artery, Percutaneous Approach (ICD-10-PCS; principal; 2025-03-12)
PROC: 4A023N7 Measurement of Cardiac Sampling and Pressure, Left Heart, Percutaneous Approach (ICD-10-PCS; 2025-03-12)
PROC: B211YZZ Fluoroscopy of Multiple Coronary Arteries using Other Contrast (ICD-10-PCS; 2025-03-12)
PROC: B215YZZ Fluoroscopy of Left Heart using Other Contrast (ICD-10-PCS; 2025-03-12)
DX: I24.9 Acute ischemic heart disease, unspecified (principal); I16.0 Hypertensive urgency; N39.0 Urinary tract infection, site not specified; E66.9 Obesity, unspecified; I10 Essential (primary) hypertension; E78.5 Hyperlipidemia, unspecified; K21.9 Gastro-esophageal reflux disease without esophagitis; F17.210 Nicotine dependence, cigarettes, uncomplicated; Z79.899 Other long term (current) drug therapy; Z86.000 Personal history of in-situ neoplasm of breast; Z98.51 Tubal ligation status; Z90.12 Acquired absence of left breast and nipple; Z85.3 Personal history of malignant neoplasm of breast; Z92.3 Personal history of irradiation; Z68.32 Body mass index [BMI] 32.0-32.9, adult; I16.9 Hypertensive crisis, unspecified
CPT/HCPCS: 36415; 71045; 78452; 80048; 80053; 80061; 81001; 83036; 83735; 84443; 84484; 85007; 85025; 85027; 85610; 85730; 93005; 93017; 93306; 93458; 99152; G0378; J2250; J2470; Q9967